=== PATIENT | female | born 1985 | race Caucasian/White ===

== ENCOUNTER 2025-03-28 08:42 | Outpatient (AMB) | payer MEDICAID, SELFPAY ==
[2025-03-28 08:52] VITALS: BP 106/72; PULSE 73; RESP 18; TEMP 36.2; O2SAT 98; BMI 49.7
--- NOTE | 2025-03-28 08:52 | OBCLNT_ITS ---
Vital Signs 03/28/25 08:52 Height 1.57 m Height Method Stated Weight 123.434 kg Weight Measurement Method Standing Scale BMI 49.7 BP 106/72 Blood Pressure Source Automatic Cuff Blood Pressure Location Left Upper Arm Position Sitting Respiration 18 Pulse 73 Pulse Source Monitor Temp 97.2 F Temp Source Oral Pulse Oximetry (%) 98 Oxygen Delivery Method Room Air Allergies/Home Meds Allergies & Medications Allergies No Known Allergies Allergy (Verified 03/28/25 08:53) Intake Visit Data Collection New Patient or Established: Established Patient (seen at [facility] within 3 years) Reason for Visit:: OBI Seen by Clinical Staff ONLY (RN/MA): No 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 1. Little interest or pleasure in doing things: not at all 2. Feeling down, depressed, or hopeless: not at all Total score: 0 PHQ-9 3. Trouble falling or staying asleep, or sleeping too much: Not at all 4. Feeling tired or having little energy: Not at all 5. Poor appetite or overeating: Not at all 6. Feeling bad about yourself - or that you are a failure or have let yourself or your family down: Not at all 7. Trouble concentrating on things, such as reading the newspaper or watching television: Not at all 8. Moving or speaking so slowly that other people could have noticed? - Or the opposite - being so fidgety or restless that you have been moving around a lot more than usual: not at all 9. Thoughts that you would be better off or of hurting yourself in some way: Not at all Total score: 0 If you checked off any problems, how difficult have these problems made it for you to do your work, take care of things at home, or get along with other people?: not difficult at all Source: Developed by Drs. Kieran Frances, Dominga Barber, Ezequiel Hinds and colleagues, with an educational troy from [employer]. Depression screen completed yes Social History Living Situation History Marital Status: Single Lives With: Family Housing: Apartment Tobacco History Smoking Status: Never smoker Second Hand Smoke Exposure: No Alcohol History Alcohol Intake: Never Domestic Abuse History Do You Feel Safe at Home: Yes Past Medical History Past Medical History Have you ever been diagnosed with any of the following: Cardiology Problems Angina: No Atherosclerotic Heart Disease: No Aneurysm: No Congestive Heart Failure: No Respiratory Problems Chronic Obstructive Pulmonary Disease (COPD): No Genital/Urinary Problems Renal Disease: No Reproductive Problems Pelvic Inflammatory Disease: No Endocrine Problems Diabetes Mellitus Type 1: No Diabetes Mellitus Type 2: No Other Problems Anesthesia Reactions: No Organ Transplant: No MRSA: No Clostridium Difficile: No Cancer: No Surgical History Hysterectomy: No History of Present Illness HPI Narrative 39 yo for OBI. LMP 02/22/25. EDC 11/30/25, sure date. planned test. removed IUD 11/14. taking PNV. seen at [facility] for preg confirm. Denies sab complaints. no complaints of discomfort. Denies existing PMH, denies social habit, denies surgery OB Initial Visit OB Flowsheet OB Flowsheet Initial Weight: Not Recorded Date -?-?-?-?-?-?-?-?-?-?--?-?- EGA Weight Edema CTX Effacement BP Fundal ht Pres Dilation Effacement Station Visit Note Alb Glu FHR Mov 03/28/25 -?-?-?-?-?-?-?-?-?-?-?-?- 4w 6d 123.434 kg absent absent 106/72 39 yo for OBI, denies sab compliants. doing well, no 1st tri discomfort. discuss diet and weight gsin, Biggest baby was 9lb, no complication/no shoulder. OB panel, HCG,TSH/A1c today, start PNV, schedule OB sono for viability. will schedule MFM appointment and lovett carrier screens at 10 week, SAB precaution,rtc 4 week Menstrual History Menstrual reliability: definite Flow: normal Menstrual regularity: regular Monthly: Yes Age at menarche: 12 On control pills at conception: No Date of positive home test: 03/22/25 Associated symptoms (LMP): Reports amenorrhea OB History : 4 Para: 3 Hx # Pregnancies: 0 Hx Total # of Abortions (Spontaneous & Elective): 0 # of Living Children: 3 Delivery History 1st : Child's name: NORRIS date: 10/14/10 sex: male Delivery type: vaginal weight (lbs): 3175.147 g History of depression before or after : No 2nd : Child's name: ADALETHAN date: 07/09/15 sex: female Delivery type: vaginal weight (lbs): 3175.147 g History of depression before or after : No 3rd : Child's name: ALICIA date: 12/13/21 sex: female Delivery type: vaginal weight (lbs): 4082.331 g History of depression before or after : No Infection History & Risk Evaluation History of STDs: none HIV risk evaluation: low risk Hepatitis B risk evaluation: low risk Patient or partner has history of Genital Herpes: No Varicella/chicken pox status: immunized Genetic Screening & History Genetic Screening/Teratology Counseling - Includes patient, baby's father, or anyone in either family with: 1. Patient's age 35 years or older as of estimated date of delivery: Yes 2. Thalassemia (Estonian, Maltese, Mediterranean, or Background); MCV less than 80: No 3. Neural Tube Defect (Meningomyelocele, Spina Bifida, or Anencephaly): No 4. Congenital Heart Defect: No 5. Down Syndrome: No 6. Artie-Sachs (Ashkenazi Rastafari, Cajun, Surinamese [place]): No 7. Marti Disease (Ashkenazi Rastafari): No 8. Familial Dysautonomia (Ashkenazi Rastafari): No 9. Sickle Cell Disease or Trait (): No 10. Hemophilia or other blood disorders: No 11. Muscular Dystrophy: No 12. Cystic Fibrosis: No 13. Aledo's Chorea: No 14. Mental Retardation/Autism: No 15. Other inherited genetic or chromosomal disorder: No 16. Maternal Metabolic Disorder (EG,TYPE 1 Diabetes, PKU): No 17. Patient or baby's father had a child with defects not listed above: No 18. Recurrent loss or a stillbirth: No 19. Medications (including supplements, vitamins, herbs or otc drugs)/illicit/recreational drugs/alcohol since last menstrual period: No 20. Any other: No Infection History 1. Live with someone with TB or exposed to TB: No 2. Rash or viral illness since last menstrual period: No 3. Hepatitis B,C: No Other (see comments) Source: [employer] Review of Systems Review of Systems Systems Reviewed: All systems reviewed, normal except as documented Genitourinary Genitourinary: Reports amenorrhea Exam General Limitations: no limitations General Appearance: alert, in no apparent distress, comfortable, cooperative, healthy appearing, well developed and well groomed Head Head exam: atraumatic, normocephalic and normal inspection Neck Neck exam: Present normal inspection, full ROM and trachea midline Resp Respiratory exam: Present normal lung sounds bilaterally Card Cardiovascular exam: Present regular rate, normal rhythm and normal heart sounds Abdominal Abdominal exam: Present soft and normal bowel sounds Psych Psychiatric exam: Present normal affect and normal mood Assessment & Plan Diagnosis / Problem List (1) Encounter for supervision of normal in multigravida in first trimester: Status: Acute (2) Advanced maternal age (AMA) in : Status: Acute (3) Obesity complicating in first trimester: Status: Acute Plan discuss weight gain of 15lb, walk daily, SAB precaution, start PNV. OB panel with HCG,TSH,A1c UT today, sono for viability. rtc 4 week Additional Plan Follow Up: 4 Weeks (obc) Office Procedures OB Clinic LOC & Office Proc's Nursing/Assessment Patient Status: Initial/New Patient OB Clinic Nursing Assessment: BP Monitoring, Medication Reconciliation, Update PMH in EMR and Vital Signs OB Clinic Coordination of Care: Consent,records obtained, informed consent, Education Simp Pt/Fam and Lab and Imaging orders New Patient Charge New Patient Point Assignment: [id number] New Patient Point Charge: DIRECTOR ORANGE Level 3 ([id number])
== END 2025-03-28 09:17 | disposition home or self-care (01) ==
LOC: HODSOBC 08:42
PROVIDERS: PCP Family Medicine; Referring Provider Family Medicine; Supervising Provider Advanced Practice Midwife; Visit Provider Advanced Practice Midwife
DX: O09.521 Supervision of elderly multigravida, first trimester (principal); Z3A.01 Less than 8 weeks gestation of pregnancy; O09.891 Supervision of other high risk pregnancies, first trimester; O99.211 Obesity complicating pregnancy, first trimester
CPT/HCPCS: 81001; 99203; G0463

== ENCOUNTER 2025-04-25 08:28 | Outpatient (AMB) | payer MEDICAID, SELFPAY ==
--- NOTE | 2025-04-25 09:04 | OBCLNT_ITS ---
Vital Signs 04/25/25 09:05 Height 1.57 m Height Method Stated Weight 121.109 kg Weight Measurement Method Standing Scale BMI 49.1 BP 111/75 Blood Pressure Source Automatic Cuff Blood Pressure Location Left Upper Arm Position Sitting Respiration 18 Pulse 66 Pulse Source Monitor Temp 97.2 F Temp Source Oral Pulse Oximetry (%) 97 Oxygen Delivery Method Room Air Allergies/Home Meds Allergies & Medications Allergies No Known Allergies Allergy (Verified 04/25/25 09:06) Medication Reconciliation doxylamine 10 mg-pyridoxine (vit B6) 10 mg tablet,delayed release (Diclegis) 1 tab PO BID PRN nausea and vomiting 30 days #60 tabs 04/25/25 [Rx] Intake Visit Data Collection New Patient or Established: Established Patient (seen at [facility] within 3 years) Reason for Visit:: OBC Seen by Clinical Staff ONLY (RN/MA): No 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 1. Little interest or pleasure in doing things: not at all 2. Feeling down, depressed, or hopeless: not at all Total score: 0 PHQ-9 3. Trouble falling or staying asleep, or sleeping too much: Not at all 4. Feeling tired or having little energy: Not at all 5. Poor appetite or overeating: Not at all 6. Feeling bad about yourself - or that you are a failure or have let yourself or your family down: Not at all 7. Trouble concentrating on things, such as reading the newspaper or watching television: Not at all 8. Moving or speaking so slowly that other people could have noticed? - Or the opposite - being so fidgety or restless that you have been moving around a lot more than usual: not at all 9. Thoughts that you would be better off or of hurting yourself in some way: Not at all Total score: 0 If you checked off any problems, how difficult have these problems made it for you to do your work, take care of things at home, or get along with other people?: not difficult at all Source: Developed by Drs. Kieran Frances, Dominga Barber, Ezequiel Hinds and colleagues, with an educational troy from [employer]. 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 doing well, no 1st tri discomfort. discuss diet and weight gsin, Biggest baby was 9lb, no complication/no shoulder. OB panel, HCG,TSH/A1c today, start PNV, schedule OB sono for viability. will schedule MFM appointment and lovett carrier screens at 10 week, SAB precaution,rtc 4 week 04/25/25 -?-?-?-?-?-?-?-?-?-?-?-?- 8w 6d 121.109 kg 111/75 absent unknown 10 154 absent deneis sab complaints, increase N/V, no other complaints schedule NT/anatomy scan. NIPT and carrier screen today. start diclegesis bid for nausea, comfort measure, discuss diet and weight gain. sab precaution, rtc 4 week VESNA Calculator Estimated Delivery Date Method Current WG Current Estimate 11/29/25 LMP (Certain) 8w 6d Notes Visit Date: 04/25/25 Last Updated by: Holley Austin CNM 39 yo . lmp 02/22/25. EDC 11/29/24. AMA/BMI, A=,abs-,rpr;;nr, rub NI, hbsag-,hiv-,gc/ct-. +UTI/treated Office Procedures OB Clinic LOC & Office Proc's Nursing/Assessment Patient Status: Established Patient OB Clinic Nursing Assessment: Medication Reconciliation, Update PMH in EMR and Vital Signs OB Clinic Coordination of Care: Education Complex Pt/Fam, Consent,records obtained, informed consent, Lab and Imaging orders, Results/Orders obtained and Staff clarify orders Special Needs: Heart tones Established Patient Charge Established Patient Point Assignment: 115 Established Patient Point Charge: EP Level 3 (80-115) Assessment & Plan Diagnosis / Problem List (1) Advanced maternal age (AMA) in : Status: Acute (2) Obesity complicating in first trimester: Status: Acute Plan discuss diet and weight gain, increase fluid, NIPT and carrier screen today. sched NT and anatomy scan, sab precaution, rtc 4 week Additional Plan Follow Up: 4 Weeks (obc)
[2025-04-25 09:05] VITALS: BP 111/75; PULSE 66; RESP 18; TEMP 36.2; O2SAT 97; BMI 49.1
== END 2025-04-25 09:07 | disposition home or self-care (01) ==
LOC: HODSOBC 08:28
PROVIDERS: Supervising Provider Advanced Practice Midwife; Visit Provider Advanced Practice Midwife
DX: O09.521 Supervision of elderly multigravida, first trimester (principal); Z3A.08 8 weeks gestation of pregnancy; O09.891 Supervision of other high risk pregnancies, first trimester; O99.211 Obesity complicating pregnancy, first trimester
CPT/HCPCS: 99213; G0463

== ENCOUNTER 2025-05-29 08:49 | Outpatient (AMB) | payer MEDICAID, SELFPAY ==
[2025-05-29 09:16] VITALS: BP 111/76; PULSE 75; RESP 17; TEMP 36.3; O2SAT 96; BMI 49.4
--- NOTE | 2025-05-29 09:16 | OBCLNT_ITS ---
Vital Signs 05/29/25 09:16 Height 1.57 m Height Method Measured Weight 121.79 kg Weight Measurement Method Standing Scale BMI 49.4 BP 111/76 Blood Pressure Source Automatic Cuff Blood Pressure Location Right Upper Arm Position Sitting Respiration 17 Pulse 75 Pulse Source Monitor Temp 97.3 F Temp Source Temporal Artery Scan Pulse Oximetry (%) 96 Oxygen Delivery Method Room Air Allergies/Home Meds Allergies & Medications Allergies No Known Allergies Allergy (Verified 05/29/25 09:17) Medication Reconciliation doxylamine 10 mg-pyridoxine (vit B6) 10 mg tablet,delayed release (Diclegis) 1 tab PO BID PRN nausea and vomiting 30 days #60 tabs 04/25/25 [Rx Confirmed 05/29/25] Intake Visit Data Collection New Patient or Established: Established Patient (seen at [facility] within 3 years) Reason for Visit:: OBC Consent obtained for Telemed Visit: No Seen by Clinical Staff ONLY (RN/MA): No Stock Layer Required: No Do You Feel Safe at Home: Yes Authorities Contacted: N/A PCP or OBGYN visit in last 3 months: Yes Date of Last PCP or OBGYN visit: 04/25/25 Hx Now: Yes Are you currently on any form of Control: No Pain Present Currently: No Pain Scale Used: Vance-Trevino/Numerical Pain scale:: 0 Smoking Status Smoking Status: Never smoker Questionnaires Covid-19 Vaccine Questionnaire Has patient been vacinated for Covid-19 Have you been vacinated for Covid-19: Yes PHQ-9 PHQ-2 Over the last 2 weeks, how often have you been bothered by any of the following problems? 1. Little interest or pleasure in doing things: not at all PHQ-9 8. Moving or speaking so slowly that other people could have noticed? - Or the opposite - being so fidgety or restless that you have been moving around a lot more than usual: not at all Source: Developed by Drs. Kieran Frances, Dominga Barber, Ezequiel Hinds and colleagues, with an educational troy from [employer]. 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 doing well, no 1st tri discomfort. discuss diet and weight gsin, Biggest baby was 9lb, no complication/no shoulder. OB panel, HCG,TSH/A1c today, start PNV, schedule OB sono for viability. will schedule MFM appointment and lovett carrier screens at 10 week, SAB precaution,rtc 4 week 04/25/25 -?-?-?-?-?-?-?-?-?-?-?-?- 8w 6d 121.109 kg 111/75 absent unknown 10 154 absent deneis sab complaints, increase N/V, no other complaints schedule NT/anatomy scan. NIPT and carrier screen today. start diclegesis bid for nausea, comfort measure, discuss diet and weight gain. sab precaution, rtc 4 week 05/29/25 -?-?-?-?-?-?-?-?-?-?-?-?- 13w 5d 121.79 kg 111/76 absent unknown 13 135 absent denies SAB complaints, light +FM discuss sab prec aution, hydrate, mfm appointment pending, AFP NV.rtc 4 week obc VESNA Calculator Estimated Delivery Date Method Current WG Current Estimate 11/29/25 LMP (Certain) 13w 5d Notes Visit Date: 05/29/25 Last Updated by: Holley Austin CNM 05/29: A+, abs-. NIPT-, SMA/CF-, BOY Visit Date: 04/25/25 Last Updated by: Holley Austin CNM 39 yo . lmp 02/22/25. EDC 11/29/24. AMA/BMI, A=,abs-,rpr;;nr, rub NI, hbsag-,hiv-,gc/ct-. +UTI/treated Office Procedures OB Clinic LOC & Office Proc's Nursing/Assessment Patient Status: Established Patient OB Clinic Nursing Assessment: Medication Reconciliation, Update PMH in EMR and Vital Signs OB Clinic Coordination of Care: Complex Care and Chronic Disease 1-5, Education Complex Pt/Fam, Lab and Imaging orders, Results/Orders obtained and Staff clarify orders Special Needs: Heart tones Established Patient Charge Established Patient Point Assignment: 135 Established Patient Point Charge: EP Level 4 (120-155) Assessment & Plan Diagnosis / Problem List (1) Obesity complicating in first trimester: Status: Acute (2) Advanced maternal age (AMA) in : Status: Acute Plan MFM pending, AFP NV, discuss 1st trimester comfort measure, hydrate.sab precaution, rtc 4 week Additional Plan Follow Up: 4 Weeks (obc)
== END 2025-05-29 09:38 | disposition home or self-care (01) ==
LOC: HODSOBC 08:49
PROVIDERS: PCP Advanced Practice Midwife; Referring Provider Advanced Practice Midwife; Supervising Provider Advanced Practice Midwife; Visit Provider Advanced Practice Midwife
DX: O09.521 Supervision of elderly multigravida, first trimester (principal); Z3A.13 13 weeks gestation of pregnancy; O09.891 Supervision of other high risk pregnancies, first trimester; O99.211 Obesity complicating pregnancy, first trimester
CPT/HCPCS: 99214; G0463

== ENCOUNTER 2025-06-26 08:50 | Outpatient (AMB) | payer MEDICAID, SELFPAY ==
[2025-06-26 09:03] VITALS: BP 123/79; PULSE 82; RESP 17; TEMP 36.4; O2SAT 97; BMI 50.4
--- NOTE | 2025-06-26 09:03 | OBCLNT_ITS ---
Vital Signs 06/26/25 09:03 Height 1.57 m Height Method Measured Weight 124.398 kg Weight Measurement Method Standing Scale BMI 50.4 BP 123/79 Blood Pressure Source Automatic Cuff Blood Pressure Location Right Upper Arm Position Sitting Respiration 17 Pulse 82 Pulse Source Monitor Temp 97.5 F Temp Source Temporal Artery Scan Pulse Oximetry (%) 97 Oxygen Delivery Method Room Air Allergies/Home Meds Allergies & Medications Allergies No Known Allergies Allergy (Verified 06/26/25 09:04) Medication Reconciliation doxylamine 10 mg-pyridoxine (vit B6) 10 mg tablet,delayed release (Diclegis) 1 tab PO BID PRN nausea and vomiting 30 days #60 tabs 04/25/25 [Rx Confirmed 06/26/25] Intake Visit Data Collection New Patient or Established: Established Patient (seen at [facility] within 3 years) Reason for Visit:: OBC Consent obtained for Telemed Visit: No Seen by Clinical Staff ONLY (RN/MA): No Network Systems Analyst Required: No Do You Feel Safe at Home: Yes Authorities Contacted: N/A PCP or OBGYN visit in last 3 months: Yes Date of Last PCP or OBGYN visit: 05/29/25 Hx Now: Yes Are you currently on any form of Control: No Pain Present Currently: No Pain Scale Used: Vance-Trevino/Numerical Pain scale:: 0 Smoking Status Smoking Status: Never smoker Questionnaires Covid-19 Vaccine Questionnaire Has patient been vacinated for Covid-19 Have you been vacinated for Covid-19: No PHQ-9 PHQ-2 Over the last 2 weeks, how often have you been bothered by any of the following problems? 1. Little interest or pleasure in doing things: not at all PHQ-9 8. Moving or speaking so slowly that other people could have noticed? - Or the opposite - being so fidgety or restless that you have been moving around a lot more than usual: not at all Source: Developed by Drs. Kieran Frances, Dominga Barber, Ezequiel Hinds and colleagues, with an educational troy from [employer]. 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 doing well, no 1st tri discomfort. discuss diet and weight gsin, Biggest baby was 9lb, no complication/no shoulder. OB panel, HCG,TSH/A1c today, start PNV, schedule OB sono for viability. will schedule MFM appointment and lovett carrier screens at 10 week, SAB precaution,rtc 4 week 04/25/25 -?-?-?-?-?-?-?-?-?-?-?-?- 8w 6d 121.109 kg 111/75 absent unknown 10 154 absent deneis sab complaints, increase N/V, no other complaints schedule NT/anatomy scan. NIPT and carrier screen today. start diclegesis bid for nausea, comfort measure, discuss diet and weight gain. sab precaution, rtc 4 week 05/29/25 -?-?-?-?-?-?-?-?-?-?-?-?- 13w 5d 121.79 kg 111/76 absent unknown 13 135 absent denies SAB complaints, light +FM discuss sab prec aution, hydrate, mfm appointment pending, AFP NV.rtc 4 week obc 06/26/25 -?-?-?-?-?-?-?-?-?-?-?-?- 17w 5d 124.398 kg 123/79 absent unknown 17 135 absent light fm, no ob complaints, MFM pending, no SAB complaints reported AFP,A1c, discuss GDM diet, contineu PNV, f/u on mfm referal, rtc 4 week VESNA Calculator Estimated Delivery Date Method Current WG Current Estimate 11/29/25 LMP (Certain) 17w 5d Notes Visit Date: 06/26/25 Last Updated by: Holley Austin CNM 39 yo . LMP 02/22/25. EDC 11/29/25, A+,abs-, rpr;;nr, rub NI, hbs ag-,hiv-,hc-, GC/CT-, NIPT and carrier- Visit Date: 05/29/25 Last Updated by: Holley Austin CNM 05/29: A+, abs-. NIPT-, SMA/CF-, BOY Visit Date: 04/25/25 Last Updated by: Holley Austin CNM 39 yo . lmp 02/22/25. EDC 11/29/24. AMA/BMI, A=,abs-,rpr;;nr, rub NI, hbsag-,hiv-,gc/ct-. +UTI/treated Office Procedures OB Clinic LOC & Office Proc's Nursing/Assessment Patient Status: Established Patient OB Clinic Nursing Assessment: Medication Reconciliation, Update PMH in EMR and Vital Signs OB Clinic Coordination of Care: Complex Care and Chronic Disease 1-5, Consent,records obtained, informed consent, Education Simp Pt/Fam and 4+ Authorizations needed Special Needs: Heart tones Established Patient Charge Established Patient Point Assignment: 130 Established Patient Point Charge: EP Level 4 (120-155) Assessment & Plan Diagnosis / Problem List (1) Advanced maternal age (AMA) in : Status: Acute (2) Obesity complicating in first trimester: Status: Acute (3) Encounter for supervision of high risk in second trimester, antepartum: Status: Acute Plan AFP, A1c, discuss weight and diet, continue pnv. f/u on mfm referral. Hydrate,no salt. ptl precaution, rtc 4 week Additional Plan Follow Up: 4 Weeks (obc)
== END 2025-06-26 09:14 | disposition home or self-care (01) ==
LOC: HODSOBC 08:50
PROVIDERS: Supervising Provider Advanced Practice Midwife; Visit Provider Advanced Practice Midwife
DX: O09.522 Supervision of elderly multigravida, second trimester (principal); O09.892 Supervision of other high risk pregnancies, second trimester; O99.212 Obesity complicating pregnancy, second trimester; Z3A.17 17 weeks gestation of pregnancy
CPT/HCPCS: 99214; G0463

== ENCOUNTER 2025-07-24 09:15 | Outpatient (AMB) | payer MEDICAID, SELFPAY ==
[2025-07-24 09:20] VITALS: BP 111/73; PULSE 91; RESP 16; TEMP 36.2; O2SAT 98; BMI 50.8
--- NOTE | 2025-07-24 09:20 | AMB.OBVISIT ---
Vital Signs 07/24/25 09:20 Height 1.57 m Height Method Stated Weight 125.418 kg Weight Measurement Method Standing Scale BMI 50.8 BP 111/73 Blood Pressure Source Automatic Cuff Blood Pressure Location Left Upper Arm Position Sitting Respiration 16 Pulse 91 Pulse Source Monitor Temp 97.2 F Temp Source Oral Pulse Oximetry (%) 98 Oxygen Delivery Method Room Air Allergies/Home Meds Allergies & Medications Allergies No Known Allergies Allergy (Verified 07/24/25 09:20) Medication Reconciliation doxylamine 10 mg-pyridoxine (vit B6) 10 mg tablet,delayed release (Diclegis) 1 tab PO BID PRN nausea and vomiting 30 days #60 tabs 04/25/25 [Rx Confirmed 07/24/25] vitamin-ferrous fumarate 28 mg iron-folic acid 800 mcg tablet ( Vitamins with Minerals) 1 tab PO QDAY #60 tabs 07/24/25 [Rx] Intake Visit Data Collection New Patient or Established: Established Patient (seen at [facility] within 3 years) Reason for Visit:: OBC Seen by Clinical Staff ONLY (RN/MA): No Shop Coordinator Required: No Do You Feel Safe at Home: Yes Authorities Contacted: N/A PCP or OBGYN visit in last 3 months: Yes Date of Last PCP or OBGYN visit: 06/26/25 Hx Now: Yes Are you currently on any form of Control: No Pain Present Currently: No Pain Scale Used: Vance-Trevino/Numerical Pain scale:: 0 Smoking Status Smoking Status: Never smoker Questionnaires Covid-19 Vaccine Questionnaire Has patient been vacinated for Covid-19 Have you been vacinated for Covid-19: Yes PHQ-9 PHQ-2 Over the last 2 weeks, how often have you been bothered by any of the following problems? 1. Little interest or pleasure in doing things: not at all 2. Feeling down, depressed, or hopeless: not at all Total score: 0 PHQ-9 3. Trouble falling or staying asleep, or sleeping too much: Not at all 4. Feeling tired or having little energy: Not at all 5. Poor appetite or overeating: Not at all 6. Feeling bad about yourself - or that you are a failure or have let yourself or your family down: Not at all 7. Trouble concentrating on things, such as reading the newspaper or watching television: Not at all 8. Moving or speaking so slowly that other people could have noticed? - Or the opposite - being so fidgety or restless that you have been moving around a lot more than usual: not at all 9. Thoughts that you would be better off or of hurting yourself in some way: Not at all Total score: 0 If you checked off any problems, how difficult have these problems made it for you to do your work, take care of things at home, or get along with other people?: not difficult at all Source: Developed by Drs. Kieran Frances, Dominga Barber, Ezequiel Hinds and colleagues, with an educational troy from [employer] 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 doing well, no 1st tri discomfort. discuss diet and weight gsin, Biggest baby was 9lb, no complication/no shoulder. OB panel, HCG,TSH/A1c today, start PNV, schedule OB sono for viability. will schedule MFM appointment and lovett carrier screens at 10 week, SAB precaution,rtc 4 week 04/25/25 <del>?</del> 8w 6d 121.109 kg 111/75 absent unknown 10 154 absent deneis sab complaints, increase N/V, no other complaints schedule NT/anatomy scan. NIPT and carrier screen today. start diclegesis bid for nausea, comfort measure, discuss diet and weight gain. sab precaution, rtc 4 week 05/29/25 <del>?</del> 13w 5d 121.79 kg 111/76 absent unknown 13 135 absent denies SAB complaints, light +FM discuss sab precaution, hydrate, mfm appointment pending, AFP NV.rtc 4 week obc 06/26/25 <del>?</del> 17w 5d 124.398 kg 123/79 absent unknown 17 135 absent light fm, no ob complaints, MFM pending, no SAB complaints reported AFP,A1c, discuss GDM diet, contineu PNV, f/u on mfm referal, rtc 4 week 07/24/25 <del>?</del> 21w 5d 125.418 kg 111/73 absent unknown 20 135 active No OB complaints. Denies leaking, denies bleeding, denies contractions. Patient needs a refill on prenatals. No OB complaints Refill prenatals. Walk 40 minutes a day. Discussed diet and weight gain. Follow-up on MFM appointment. Return in 4 weeks OB check VESNA Calculator Estimated Delivery Date Method Current WG Current Estimate 11/29/25 LMP (Certain) 21w 5d Notes Visit Date: 07/24/25 Last Updated by: Holley Austin CNM 07/24: AFP- Visit Date: 06/26/25 Last Updated by: Holley Austin CNM 39 yo . LMP 02/22/25. EDC 11/29/25, A+,abs-, rpr;;nr, rub NI, hbsag-,hiv-,hc-, GC/CT-, NIPT and carrier- Visit Date: 05/29/25 Last Updated by: Holley Austin CNM 05/29: A+, abs-. NIPT-, SMA/CF-, BOY Visit Date: 04/25/25 Last Updated by: Holley Austin CNM 39 yo . lmp 02/22/25. EDC 11/29/24. AMA/BMI, A=,abs-,rpr;;nr, rub NI, hbsag-,hiv-,gc/ct-. +UTI/treated Office Procedures OB Clinic LOC & Office Proc's Nursing/Assessment Patient Status: Established Patient OB Clinic Nursing Assessment: Medication Reconciliation, Update PMH in EMR and Vital Signs OB Clinic Coordination of Care: Education Complex Pt/Fam, Consent,records obtained, informed consent, Lab and Imaging orders and Results/Orders obtained Special Needs: Heart tones Established Patient Charge Established Patient Point Assignment: 105 Established Patient Point Charge: EP Level 3 (80-115) Assessment & Plan Diagnosis / Problem List (1) Encounter for supervision of high risk in second trimester, antepartum: Status: Acute (2) Obesity complicating in first trimester: Status: Acute (3) Advanced maternal age (AMA) in : Status: Acute Plan MFM anatomy scan pending. Discussed diet and weight. Walk 40 minutes a day. Discussed AFP. Continue prenatals and those were refilled. Increase fluids. Return in 4 weeks OB check Additional Plan Follow Up: 4 Weeks (obc)
== END 2025-07-24 09:48 | disposition home or self-care (01) ==
LOC: HODSOBC 09:15
PROVIDERS: Supervising Provider Advanced Practice Midwife; Visit Provider Advanced Practice Midwife
DX: O09.522 Supervision of elderly multigravida, second trimester (principal); O09.892 Supervision of other high risk pregnancies, second trimester; O99.212 Obesity complicating pregnancy, second trimester; Z3A.21 21 weeks gestation of pregnancy
CPT/HCPCS: 99213; G0463

== ENCOUNTER 2025-08-26 09:32 | Outpatient (AMB) | payer MEDICAID, SELFPAY ==
[2025-08-26 09:37] VITALS: BP 105/70; PULSE 77; RESP 16; TEMP 35.8; O2SAT 96; BMI 51.0
--- NOTE | 2025-08-26 09:37 | OBCLNT_ITS ---
Vital Signs 08/26/25 09:37 Height 1.57 m Height Method Stated Weight 125.872 kg Weight Measurement Method Standing Scale BMI 51.0 BP 105/70 Blood Pressure Source Automatic Cuff Blood Pressure Location Left Upper Arm Position Sitting Respiration 16 Pulse 77 Pulse Source Monitor Temp 96.4 F L Temp Source Oral Pulse Oximetry (%) 96 Oxygen Delivery Method Room Air Allergies/Home Meds Allergies & Medications Allergies No Known Allergies Allergy (Verified 08/26/25 09:38) Medication Reconciliation doxylamine 10 mg-pyridoxine (vit B6) 10 mg tablet,delayed release (Diclegis) 1 tab PO BID PRN nausea and vomiting 30 days #60 tabs 04/25/25 [Rx Confirmed 08/26/25] vitamin-ferrous fumarate 28 mg iron-folic acid 800 mcg tablet ( Vitamins with Minerals) 1 tab PO QDAY #60 tabs 07/24/25 [Rx Confirmed 08/26/25] Intake Visit Data Collection New Patient or Established: Established Patient (seen at [facility] within 3 years) Reason for Visit:: CARE Seen by Clinical Staff ONLY (RN/MA): No Geologic Technician Required: No Do You Feel Safe at Home: Yes Authorities Contacted: N/A PCP or OBGYN visit in last 3 months: Yes Hx Now: Yes Are you currently on any form of Control: No Pain Present Currently: No Pain Scale Used: Vance-Trevino/Numerical Pain scale:: 0 Smoking Status Smoking Status: Never smoker Questionnaires Covid-19 Vaccine Questionnaire Has patient been vacinated for Covid-19 Have you been vacinated for Covid-19: Yes PHQ-9 PHQ-2 Over the last 2 weeks, how often have you been bothered by any of the following problems? 1. Little interest or pleasure in doing things: not at all 2. Feeling down, depressed, or hopeless: not at all Total score: 0 PHQ-9 3. Trouble falling or staying asleep, or sleeping too much: Not at all 4. Feeling tired or having little energy: Not at all 5. Poor appetite or overeating: Not at all 6. Feeling bad about yourself - or that you are a failure or have let yourself or your family down: Not at all 7. Trouble concentrating on things, such as reading the newspaper or watching television: Not at all 8. Moving or speaking so slowly that other people could have noticed? - Or the opposite - being so fidgety or restless that you have been moving around a lot more than usual: not at all 9. Thoughts that you would be better off or of hurting yourself in some way: Not at all Total score: 0 Source: Developed by Drs. Kieran Frances, Dominga Barber, Ezequiel Hinds and colleagues, with an educational troy from [employer]. 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 doing well, no 1st tri discomfort. discuss diet and weight gsin, Biggest baby was 9lb, no complication/no shoulder. OB panel, HCG,TSH/A1c today, start PNV, schedule OB sono for viability. will schedule MFM appointment and lovett carrier screens at 10 week, SAB precaution,rtc 4 week 04/25/25 -?-?-?-?-?-?-?-?-?-?-?-?- 8w 6d 121.109 kg 111/75 absent unknown 10 154 absent deneis sab complaints, increase N/V, no other complaints schedule NT/anatomy scan. NIPT and carrier screen today. start diclegesis bid for nausea, comfort measure, discuss diet and weight gain. sab precaution, rtc 4 week 05/29/25 -?-?-?-?-?-?-?-?-?-?-?-?- 13w 5d 121.79 kg 111/76 absent unknown 13 135 absent denies SAB complaints, light +FM discuss sab prec aution, hydrate, mfm appointment pending, AFP NV.rtc 4 week obc 06/26/25 -?-?-?-?--?-?-?-?-?-?-?-?- 17w 5d 124.398 kg 123/79 absent unknown 17 135 absent light fm, no ob complaints, MFM pending, no SAB complaints reported AFP,A1c, discuss GDM diet, contineu PNV, f/u on mfm referal, rtc 4 week 07/24/25 -?-?-?-?-?-?-?-?-?-?-?-?- 21w 5d 125.418 kg 111/73 absent unknown 20 135 active No OB complaints. Denies leaking, denies bleeding, denies contractions. Patient needs a refill on prenatals. No OB complaints Ref ill prenatals. Walk 40 minutes a day. Discussed diet and weight gain. Follow-up on MFM appointment. Return in 4 weeks OB check 08/26/25 -?-?-?-?-?-?-?-?-?-?-?-?- 26w 3d 125.872 kg 105/70 absent unknown 26 135 active Patient has ultrasound with MFM in the morning. Denies leaking, bleeding, contractions. Reports movement. No OB complaints. Patient will start disability next visit as she is not working at all. Disability next visit. Keep appointment for maternal- medicine ultrasound in the morning. Third trimester labs scheduled. Return in 4 weeks OB check VESNA Calculator Estimated Delivery Date Method Current WG Current Estimate 11/29/25 LMP (Certain) 26w 3d Notes Visit Date: 07/24/25 Last Updated by: Holley Austin CNM 07/24: AFP- Visit Date: 06/26/25 Last Updated by: Holley Austin CNM 39 yo . LMP 02/22/25. EDC 11/29/25, A+,abs-, rpr;;nr, rub NI, hbsag-,hiv-,hc-, GC/CT-, NIPT and carrier- Visit Date: 05/29/25 Last Updated by: Holley Austin CNM 05/29: A+, abs-. NIPT-, SMA/CF-, BOY Visit Date: 04/25/25 Last Updated by: Holley Austin CNM 39 yo . lmp 02/22/25. EDC 11/29/24. AMA/BMI, A=,abs-,rpr;;nr, rub NI, hbsag-,hiv-,gc/ct-. +UTI/treated Office Procedures OBC Clinic LOC & Office Proc's Nursing/Assessment Patient Status: Established Patient OB Clinic Nursing Assessment: Medication Reconciliation, Update PMH in EMR and Vital Signs OB Clinic Coordination of Care: AMA, Complex Care and Chronic Disease 1-5, Consent,records obtained, informed consent, Education Simp Pt/Fam, 1 Ins Authorization, Lab and Imaging orders, Results/Orders obtained and Staff clarify orders Established Patient Charge Established Patient Point Assignment: 140 Established Patient Point Charge: EP Level 4 (120-155) Assessment & Plan Diagnosis / Problem List (1) Encounter for supervision of high risk in second trimester, antepartum: Status: Acute Plan Third trimester labs. Keep appointment for ultrasound in the morning with MFM. Discussed labor precautions. Continue prenatals. Diet and exercise. Return in 4 weeks OB check. Disability next visit Additional Plan Follow Up: 4 Weeks (obc)
== END 2025-08-26 10:36 | disposition home or self-care (01) ==
LOC: HODSOBC 09:32
PROVIDERS: Supervising Provider Advanced Practice Midwife; Visit Provider Advanced Practice Midwife
DX: O09.522 Supervision of elderly multigravida, second trimester (principal); Z3A.26 26 weeks gestation of pregnancy
CPT/HCPCS: 99214; G0463

== ENCOUNTER 2025-09-16 14:31 | Observation (INO) | payer MEDICAID, SELFPAY ==
[2025-09-16] VITALS (29 sets, daily range): BP systolic 133; BP diastolic 70; PULSE 71–94; RESP 18–98; TEMP 36.6; O2SAT 90–99; BMI 51.7
--- NOTE | 2025-09-16 14:49 | XR_ITS ---
Examination: Complete OB ultrasound greater than 14 weeks Date and time of exam: September 16, 2025, 1510 hours INDICATIONS: Onset vaginal bleeding today Findings: Viable intrauterine single fetus with single amniotic sac presentation cephalic Cardiac motion 140 bpm Placenta anterior grade 2 Umbilical cord insertion 3 vessels seen Amniotic fluid index 11.7 cm spine maternal left Cervix 4.2 cm Ovaries obscured by bowel gas. Composite estimated gestational age based on BPD, head circumference, abdominal circumference, femur length is 32 weeks 6 days Estimated weight 2030 g. Survey of intracranial anatomy, spinal anatomy, abdominal anatomy, four-chamber heart performed with no abnormalities identified. Impression: Viable intrauterine gestation cephalic presentation.
[2025-09-16 15:42] LABS: Collection Type, Urine Clean Catch
[2025-09-16 16:15] LABS: Bacteria,Urine 1+; Bilirubin,Urine Negative (Negative); Blood,Urine Negative (Negative); Clarity,Urine Clear (Clear/Hazy); Color,Urine Yellow (Lt Yel-Yel); Glucose, Urine Negative (Negative); Ketones,Urine Negative (Negative); Leukocyte Esterase,Urine Negative (Negative); Nitrite,Urine Negative (Negative); PH,Urine 6.5 (5.0-7.0); Protein,Urine Trace (Neg - Trace); RBC,Urine 6 /hpf (0-3); Specific Gravity,Urine 1.029 (1.001-1.035); Squamous Epithelial Cell,Urine 43 /hpf (0-5); Urobilinogen,Urine 2.0 mg/dL (0.0-1.0); WBC,Urine 4 /hpf (0-5)
== END 2025-09-16 17:15 | disposition home or self-care (01) ==
PROVIDERS: Admitting Provider Obstetrics & Gynecology; Visit Provider Obstetrics & Gynecology
DX: O46.93 Antepartum hemorrhage, unspecified, third trimester (principal); Z3A.32 32 weeks gestation of pregnancy
CPT/HCPCS: 59025; 59899; 76805; 81001

== ENCOUNTER 2025-09-23 09:25 | Outpatient (AMB) | payer MEDICAID, SELFPAY ==
--- NOTE | 2025-09-23 09:43 | OBCLNT_ITS ---
Vital Signs 09/23/25 09:44 Height 1.57 m Height Method Stated Weight 128.99 kg Weight Measurement Method Standing Scale BMI 52.3 BP 117/72 Blood Pressure Source Automatic Cuff Blood Pressure Location Right Upper Arm Position Sitting Respiration 18 Pulse 67 Pulse Source Monitor Temp 97.6 F Temp Source Temporal Artery Scan Pulse Oximetry (%) 96 Oxygen Delivery Method Room Air Allergies/Home Meds Allergies & Medications Allergies No Known Allergies Allergy (Verified 09/23/25 09:44) Medication Reconciliation doxylamine 10 mg-pyridoxine (vit B6) 10 mg tablet,delayed release (Diclegis) 1 tab PO BID PRN nausea and vomiting 30 days #60 tabs 04/25/25 [Rx Confirmed 09/23/25] vitamin-ferrous fumarate 28 mg iron-folic acid 800 mcg tablet ( Vitamins with Minerals) 1 tab PO QDAY #60 tabs 07/24/25 [Rx Confirmed 09/23/25] Intake Visit Data Collection New Patient or Established: Established Patient (seen at [facility] within 3 years) Reason for Visit:: OBC Seen by Clinical Staff ONLY (RN/MA): No Outsewer Required: No Do You Feel Safe at Home: Yes Authorities Contacted: N/A PCP or OBGYN visit in last 3 months: Yes Date of Last PCP or OBGYN visit: 09/16/25 Hx Now: Yes Are you currently on any form of Control: No Pain Present Currently: No Pain Scale Used: Vance-Trevino/Numerical Pain scale:: 0 Smoking Status Smoking Status: Never smoker Immunizations Flu Vaccine in the Last 12 Months: No Flu Vaccine Exclusion Criteria: No Exclusion Criteria Questionnaires Covid-19 Vaccine Questionnaire Has patient been vacinated for Covid-19 Have you been vacinated for Covid-19: No PHQ-9 PHQ-2 Over the last 2 weeks, how often have you been bothered by any of the following problems? 1. Little interest or pleasure in doing things: not at all 2. Feeling down, depressed, or hopeless: not at all Total score: 0 PHQ-9 3. Trouble falling or staying asleep, or sleeping too much: Not at all 4. Feeling tired or having little energy: Not at all 5. Poor appetite or overeating: Not at all 6. Feeling bad about yourself - or that you are a failure or have let yourself or your family down: Not at all 7. Trouble concentrating on things, such as reading the newspaper or watching television: Not at all 8. Moving or speaking so slowly that other people could have noticed? - Or the opposite - being so fidgety or restless that you have been moving around a lot more than usual: not at all 9. Thoughts that you would be better off or of hurting yourself in some way: Not at all Total score: 0 If you checked off any problems, how difficult have these problems made it for you to do your work, take care of things at home, or get along with other people?: not difficult at all Source: Developed by Drs. Kieran Frances, Dominga Barber, Ezequiel Hinds and colleagues, with an educational troy from [employer]. 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 doing well, no 1st tri discomfort. discuss diet and weight gsin, Biggest baby was 9lb, no complication/no shoulder. OB panel, HCG,TSH/A1c today, start PNV, schedule OB sono for viability. will schedule MFM appointment and lovett carrier screens at 10 week, SAB precaution,rtc 4 week 04/25/25 -?-?-?-?-?-?-?-?-?-?-?-?- 12w 2d 121.109 kg 111/75 absent unknown 10 154 absent deneis sab co mplaints, increase N/V, no other complaints schedule NT/anatomy scan. NIPT and carrier screen today. start diclegesis bid for nausea, comfort measure, discuss diet and weight gain. sab precaution, rtc 4 week 05/29/25 -?-?-?-?-?-?-?-?-?-?-?-?- 17w 1d 121.79 kg 111/76 absent unknown 13 135 absent denies SAB complaints, light +FM discuss sab prec aution, hydrate, mfm appointment pending, AFP NV.rtc 4 week obc 06/26/25 -?-?-?-?-?-?-?-?-?-?-?-?- 21w 1d 124.398 kg 123/79 absent unknown 17 135 absent light fm, no ob complaints, MFM pending, no SAB complaints reported AFP,A1c, discuss GDM diet, contineu PNV, f/u on mfm referal, rtc 4 week 07/24/25 -?-?-?-?-?-?-?-?-?-?--?-?- 25w 1d 125.418 kg 111/73 absent unknown 20 135 active No OB complaints. Denies leaking, denies bleeding, denies contractions. Patient needs a refill on prenatals. No OB complaints Ref ill prenatals. Walk 40 minutes a day. Discussed diet and weight gain. Follow-up on MFM appointment. Return in 4 weeks OB check 08/26/25 -?-?-?-?-?-?-?-?-?-?-?-?- 29w 6d 125.872 kg 105/70 absent unknown 26 135 active Patient has ultrasound with MFM in the morning. Denies leaking, bleeding, contractions. Reports movement. No OB complaints. Patient will start disability next visit as she is not working at all. Disability next visit. Keep appointment for maternal- medicine ultrasound in the morning. Third trimester labs scheduled. Return in 4 weeks OB check 09/23/25 -?-?-?-?-?-?-?-?-?-?-?-?- 33w 6d 128.99 kg 117/72 absent unknown 33 135 active Reports good movement. Denies leaking, bleeding, contractions. Increased backache. Patient is wanting to start disability. Start disability today. Patient stopped work because she was working 8 hours a day and it made her tired to stand. Complains of back pain. Start weekly NST BPP for obesity and advanced maternal age. Discussed labor precautions. Kick count twice a day. Tdap today. And patient has a follow-up M the end of September VESNA Calculator Estimated Delivery Date Method Current WG Current Estimate 11/05/25 Ultrasound #2 33w 6d Other Estimates 11/29/25 LMP (Certain) 30w 3d 11/29/25 Ultrasound #1 30w 3d 11/29/25 Manual 30w 3d final vesna, EFW 96% Notes Visit Date: 09/23/25 Last Updated by: Holley Austin CNM 3rd tri labs:wnl, 1 hr gtt: 131, A1: 4.7,RPR::NR sono 08/27/25: EFW: 97%. biggest baby: 9lb. Visit Date: 07/24/25 Last Updated by: Holley Austin CNM 07/24: AFP- Visit Date: 06/26/25 Last Updated by: Holley Austin CNM 39 yo . LMP 02/22/25. EDC 11/29/25, A+,abs-, rpr;;nr, rub NI, hbsag-,hiv-,hc-, GC/CT-, NIPT and carrier- Visit Date: 05/29/25 Last Updated by: Holley Austin CNM 05/29: A+, abs-. NIPT-, SMA/CF-, BOY Visit Date: 04/25/25 Last Updated by: Holley Austin CNM 39 yo . lmp 02/22/25. EDC 11/29/24. AMA/BMI, A=,abs-,rpr;;nr, rub NI, hbsag-,hiv-,gc/ct-. +UTI/treated Office Procedures OBC Clinic LOC & Office Proc's Nursing/Assessment Patient Status: Established Patient OB Clinic Nursing Assessment: Medication Reconciliation, Update PMH in EMR and Vital Signs OB Clinic Coordination of Care: Complex Care and Chronic Disease 1-5, Education Complex Pt/Fam, Consent,records obtained, informed consent, Lab and Imaging orders and Staff clarify orders Special Needs: Heart tones Established Patient Charge Established Patient Point Assignment: 135 Established Patient Point Charge: EP Level 4 (120-155) Injection/Vaccine Admin SQ Im Injection: Yes Immunizations diphth,pertus(acell),tetanus 2.5 Lf unit-8 mcg-5 Lf/0.5mL IM syringe Performing Provider: Holley Austin CNM Performing Location: [facility] Administered by: Idalmis Saavedra MA on 09/23/25 13:14 Dose Route Admin Location Dispensed Lot Number Expiration Date Pack age [facility] Parts Data [employer] 0.5 mL IM Left Deltoid 0.5 mL [id number] 05/02/28 [id number] [employer] VIS Given Date VIS Provided VIS Publication Date 09/23/25 Single Vaccine 24 Eligibility Eligibility Date Funding Source [facility] Assessment & Plan Diagnosis / Problem List (1) Advanced maternal age (AMA) in : Status: Acute (2) Obesity complicating in first trimester: Status: Acute (3) Encounter for supervision of high risk in third trimester, antepartum: Status: Acute Plan Discussed third trimester labs. I advised walking 40 minutes a day and 10 minutes after each meal. Discussed weight gain. Decrease sugary foods. Follow-up [facility] the end of September. Schedule weekly NST BPP and kick count twice a day. Tdap today. Return in 2 weeks OB check Additional Plan Follow Up: 2 Weeks (obc)
[2025-09-23 09:44] VITALS: BP 117/72; PULSE 67; RESP 18; TEMP 36.4; O2SAT 96; BMI 52.3
== END 2025-09-23 10:12 | disposition home or self-care (01) ==
PROVIDERS: Supervising Provider Advanced Practice Midwife; Visit Provider Advanced Practice Midwife
DX: O09.523 Supervision of elderly multigravida, third trimester (principal); O09.893 Supervision of other high risk pregnancies, third trimester; O99.213 Obesity complicating pregnancy, third trimester; O99.891 Other specified diseases and conditions complicating pregnancy; M54.9 Dorsalgia, unspecified; Z3A.33 33 weeks gestation of pregnancy; Z23 Encounter for immunization
CPT/HCPCS: 90471; 90715; 96372; 99214; G0463

== ENCOUNTER 2025-10-07 11:16 | Outpatient (AMB) | payer MEDICAID, SELFPAY ==
[2025-10-07 11:24] VITALS: BP 108/66; PULSE 80; RESP 18; TEMP 36.2; O2SAT 96; BMI 51.9
--- NOTE | 2025-10-07 11:24 | OBCLNT_ITS ---
Vital Signs 10/07/25 11:24 Height 1.57 m Height Method Stated Weight 127.97 kg Weight Measurement Method Standing Scale BMI 51.9 BP 108/66 Blood Pressure Source Automatic Cuff Blood Pressure Location Right Upper Arm Position Sitting Respiration 18 Pulse 80 Pulse Source Monitor Temp 97.1 F Temp Source Temporal Artery Scan Pulse Oximetry (%) 96 Oxygen Delivery Method Room Air Allergies/Home Meds Allergies & Medications Allergies No Known Allergies Allergy (Verified 10/07/25 11:25) Medication Reconciliation doxylamine 10 mg-pyridoxine (vit B6) 10 mg tablet,delayed release (Diclegis) 1 tab PO BID PRN nausea and vomiting 30 days #60 tabs 04/25/25 [Rx Confirmed 10/07/25] vitamin-ferrous fumarate 28 mg iron-folic acid 800 mcg tablet ( Vitamins with Minerals) 1 tab PO QDAY #60 tabs 07/24/25 [Rx Confirmed 10/07/25] clotrimazole 1 % vaginal cream (Gyne-Lotrimin 7) 1 appful vaginal QHS #45 grams 10/07/25 [Rx] fluconazole 150 mg tablet 150 mg PO QDAY 3 days #3 tabs 10/07/25 [Rx] metronidazole 500 mg tablet 500 mg PO BID 7 days #14 tabs 10/07/25 [Rx] Intake Visit Data Collection New Patient or Established: Established Patient (seen at [facility] within 3 years) Reason for Visit:: OBC /GBS Seen by Clinical Staff ONLY (RN/MA): No Optical Scientist Required: No Do You Feel Safe at Home: Yes Authorities Contacted: N/A PCP or OBGYN visit in last 3 months: Yes Date of Last PCP or OBGYN visit: 10/03/25 Hx Now: Yes Are you currently on any form of Control: No Pain Present Currently: No Pain Scale Used: Vance-Trevino/Numerical Pain scale:: 0 Smoking Status Smoking Status: Never smoker Immunizations Flu Vaccine in the Last 12 Months: No Flu Vaccine Exclusion Criteria: No Exclusion Criteria Questionnaires Covid-19 Vaccine Questionnaire Has patient been vacinated for Covid-19 Have you been vacinated for Covid-19: Yes PHQ-9 PHQ-2 Over the last 2 weeks, how often have you been bothered by any of the following problems? 1. Little interest or pleasure in doing things: not at all 2. Feeling down, depressed, or hopeless: not at all Total score: 0 PHQ-9 3. Trouble falling or staying asleep, or sleeping too much: Not at all 4. Feeling tired or having little energy: Not at all 5. Poor appetite or overeating: Not at all 6. Feeling bad about yourself - or that you are a failure or have let yourself or your family down: Not at all 7. Trouble concentrating on things, such as reading the newspaper or watching television: Not at all 8. Moving or speaking so slowly that other people could have noticed? - Or the opposite - being so fidgety or restless that you have been moving around a lot more than usual: not at all 9. Thoughts that you would be better off or of hurting yourself in some way: Not at all Total score: 0 If you checked off any problems, how difficult have these problems made it for you to do your work, take care of things at home, or get along with other people?: not difficult at all Source: Developed by Drs. Kieran Frances, Dominga Barber, Ezequiel Hinds and colleagues, with an educational troy from [employer]. 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 doing well, no 1st tri discomfort. discuss diet and weight gsin, Biggest baby was 9lb, no complication/no shoulder. OB panel, HCG,TSH/A1c today, start PNV, schedule OB sono for viability. will schedule MFM appointment and lovett carrier screens at 10 week, SAB precaution,rtc 4 week 04/25/25 -?-?-?-?-?-?-?-?-?-?-?-?- 8w 6d 121.109 kg 111/75 absent unknown 10 154 absent deneis sab complaints, increase N/V, no other complaints schedule NT/anatomy scan. NIPT and carrier screen today. start diclegesis bid for nausea, comfort measure, discuss diet and weight gain. sab precaution, rtc 4 week 05/29/25 -?-?-?-?-?-?-?-?-?-?-?-?- 13w 5d 121.79 kg 111/76 absent unknown 13 135 absent denies SAB complaints, light +FM discuss sab prec aution, hydrate, mfm appointment pending, AFP NV.rtc 4 week obc 06/26/25 -?-?-?-?-?-?-?-?-?-?-?-?- 17w 5d 124.398 kg 123/79 absent unknown 17 135 absent light fm, no ob complaints, MFM pending, no SAB complaints reported AFP,A1c, discuss GDM diet, contineu PNV, f/u on mfm referal, rtc 4 week 07/24/25 -?-?-?-?-?-?-?-?-?-?-?-?- 21w 5d 125.418 kg 111/73 absent unknown 20 135 active No OB complaints. Denies leaking, denies bleeding, denies contractions. Patient needs a refill on prenatals. No OB complaints Re fill prenatals. Walk 40 minutes a day. Discussed diet and weight gain. Follow-up on MFM appointment. Return in 4 weeks OB check 08/26/25 -?-?-?-?-?-?-?-?-?-?-?-?- 26w 3d 125.872 kg 105/70 absent unknown 26 135 active Patient has ultrasound with MFM in the morning. Denies leaking, bleeding, contractions. Reports movement. No OB complaints. Patient will start disability next visit as she is not working at all. Disability next visit. Keep appointment for maternal- medicine ultrasound in the morning. Third trimester labs scheduled. Return in 4 weeks OB check 09/23/25 -?-?-?-?-?-?-?-?-?-?-?-?- 30w 3d 128.99 kg 117/72 absent unknown 33 135 active Reports good movement. Denies leaking, bleeding, contractions. Increased backache. Patient is wanting to start disability. Start disability today. Patient stopped work because she was working 8 hours a day and it made her tired to stand. Complains of back pain. Start weekly NST BPP for obesity and advanced maternal age. Discussed labor precautions. Kick count twice a day. Tdap today. And patient has a follow-up MFM the end of 10/07/25 -?-?-?-?-?-?-?-?-?-?-?-?- 32w 3d 127.97 kg 108/66 absent cephalic 33 145 active Denies leaking or bleeding. Denies contractions. Reports good movement. Patient complains of vaginal discharge and itching and burning. Heavy white curdy discharge noted with but mucous membranes. No lesions NuSwab plus today. I gave the patient Gyne-Lotrimin x 7 to put at bedtime on the labia she can use it in the morning as well. Flagyl 500 p.o. twice daily x 7. And I also gave her Diflucan 151 p.o. daily x 3. Continue weekly NST BPP. Discussed diet and weight gain. Patient to walk 40 minutes a day and 10 minutes after each meal. Discussed kick count twice a day. On labor precautions. Return in 2 weeks OB check VESNA Calculator Estimated Delivery Date Method Current WG Current Estimate 11/29/25 Ultrasound #1 32w 3d Other Estimates 11/29/25 LMP (Certain) 32w 3d 11/05/25 Ultrasound #2 35w 6d 11/29/25 Manual 32w 3d final vesna, 11/29. EFW 96% Notes Visit Date: 09/23/25 Last Updated by: Holley Austin CNM 3rd tri labs:wnl, 1 hr gtt: 131, A1: 4.7,RPR::NR sono 08/27/25: EFW: 97%. biggest baby: 9lb. Visit Date: 07/24/25 Last Updated by: Holley Austin CNM 07/24: AFP- Visit Date: 06/26/25 Last Updated by: Holley Austin CNM 39 yo . LMP 02/22/25. EDC 11/29/25, A+,abs-, rpr;;nr, rub NI, hbsag-,hiv-,hc-, GC/CT-, NIPT and carrier- Visit Date: 05/29/25 Last Updated by: Holley Austin CNM 05/29: A+, abs-. NIPT-, SMA/CF-, BOY Visit Date: 04/25/25 Last Updated by: Holley Austin CNM 39 yo . lmp 02/22/25. EDC 11/29/24. AMA/BMI, A=,abs-,rpr;;nr, rub NI, hbsag-,hiv-,gc/ct-. +UTI/treated Office Procedures OBC Clinic LOC & Office Proc's Nursing/Assessment Patient Status: Established Patient OB Clinic Nursing Assessment: Medication Reconciliation, Update PMH in EMR and Vital Signs OB Clinic Coordination of Care: Complex Care and Chronic Disease 1-5, Education Complex Pt/Fam, Consent,records obtained, informed consent, Lab and Imaging orders, Results/Orders obtained and Staff clarify orders Special Needs: Heart tones Miscellaneous Interventions: Culture Specimen Collection Established Patient Charge Established Patient Point Assignment: 155 Established Patient Point Charge: EP Level 4 (120-155) Assessment & Plan Diagnosis / Problem List (1) Encounter for supervision of high risk in third trimester, antepartum: Status: Acute (2) Obesity complicating in first trimester: Status: Acute Qualifiers: Obesity type affecting : severe obesity due to excess calories Qualified Code(s): O99.211 - Obesity complicating , first trimester; E66.01 - Morbid (severe) obesity due to excess calories (3) Advanced maternal age (AMA) in : Status: Acute (4) Vaginitis: Status: Acute Qualifiers: Chronicity: acute Qualified Code(s): N76.0 - Acute vaginitis Plan nu swab plus, gynelotrimin x 7, flGYL 500 PO BID X7, DIFLUCAN 150 X3, COMFORT MEASURE FOR VAGINITIS, . continue week nst/bpp, fkc bid, walk 40 minutes daily and 10 minutes after each mealdiscuss GDM diet. rtc 3 week gbs Additional Plan Follow Up: 3 Weeks (obc/gbs)
== END 2025-10-07 11:47 | disposition home or self-care (01) ==
LOC: HODSOBC 11:16
PROVIDERS: Supervising Provider Advanced Practice Midwife; Visit Provider Advanced Practice Midwife
DX: O09.893 Supervision of other high risk pregnancies, third trimester (principal); O99.213 Obesity complicating pregnancy, third trimester; O23.593 Infection of other part of genital tract in pregnancy, third trimester; N76.0 Acute vaginitis; O09.523 Supervision of elderly multigravida, third trimester; Z3A.32 32 weeks gestation of pregnancy
CPT/HCPCS: 99214; G0463

== ENCOUNTER 2025-10-14 15:01 | Outpatient (AMB) | payer MEDICAID, SELFPAY ==
[2025-10-14 15:08] VITALS: BP 123/76; PULSE 90; RESP 18; TEMP 36.8; O2SAT 98; BMI 52.4
--- NOTE | 2025-10-14 15:08 | OBCLNT_ITS ---
Vital Signs 10/14/25 15:08 Height 1.57 m Height Method Stated Weight 129.387 kg Weight Measurement Method Standing Scale BMI 52.4 BP 123/76 Blood Pressure Source Automatic Cuff Blood Pressure Location Left Upper Arm Position Sitting Respiration 18 Pulse 90 Pulse Source Monitor Temp 98.2 F Temp Source Oral Pulse Oximetry (%) 98 Oxygen Delivery Method Room Air Allergies/Home Meds Allergies & Medications Allergies No Known Allergies Allergy (Verified 10/14/25 15:09) Medication Reconciliation doxylamine 10 mg-pyridoxine (vit B6) 10 mg tablet,delayed release (Diclegis) 1 tab PO BID PRN nausea and vomiting 30 days #60 tabs 04/25/25 [Rx Confirmed 10/14/25] vitamin-ferrous fumarate 28 mg iron-folic acid 800 mcg tablet ( Vitamins with Minerals) 1 tab PO QDAY #60 tabs 07/24/25 [Rx Confirmed 10/14/25] clotrimazole 1 % vaginal cream (Gyne-Lotrimin 7) 1 appful vaginal QHS #45 grams 10/07/25 [Rx Confirmed 10/14/25] Immunizations Immunizations Flu Vaccine in the Last 12 Months: Yes Date of most recent flu vaccination: 10/14/25 Flu Vaccine Exclusion Criteria: Already Received Care OB Visit Log OB Flowsheet Initial Weight: Not Recorded Date -?-?-?-?-?-?-?-?-?-?-?-?- EGA Weight BP Alb Glu CTX Pres Fundal ht FHR Mov Dilation Station Effacement Hx Notes Visit Note 03/28/25 -?-?-?-?-?-?-?-?-?-?-?-?- 4w 6d 123.434 kg 106/72 absent 39 yo for OBI, denies sab compliants. doing well, no 1st tri discomfort. discuss diet and weight gsin, Biggest baby was 9lb, no complication/no shoulder. OB panel, HCG,TSH/A1c today, start PNV, schedule OB sono for viability. will schedule MFM appointment and lovett carrier screens at 10 week, SAB precaution,rtc 4 week 04/25/25 -?-?-?-?-?-?-?-?-?-?-?-?- 8w 6d 121.109 kg 111/75 absent unknown 10 154 absent deneis sab complaints, increase N/V, no other complaints schedule NT/anatomy scan. NIPT and carrier screen today. start diclegesis bid for nausea, comfort measure, discuss diet and weight gain. sab precaution, rtc 4 week 05/29/25 -?-?-?-?-?-?-?-?-?-?-?-?- 13w 5d 121.79 kg 111/76 absent unknown 13 135 absent denies SAB complaints, light +FM discuss sab prec aution, hydrate, mfm appointment pending, AFP NV.rtc 4 week obc 06/26/25 -?-?-?-?-?-?-?-?-?-?-?-?- 17w 5d 124.398 kg 123/79 absent unknown 17 135 absent light fm, no ob complaints, MFM pending, no SAB complaints reported AFP,A1c, discuss GDM diet, contineu PNV, f/u on mfm referal, rtc 4 week 07/24/25 -?-?-?-?-?-?-?-?-?-?-?-?- 21w 5d 125.418 kg 111/73 absent unknown 20 135 active No OB complaints. Denies leaking, denies bleeding, denies contractions. Patient needs a refill on prenatals. No OB complaints Ref ill prenatals. Walk 40 minutes a day. Discussed diet and weight gain. Follow-up on MFM appointment. Return in 4 weeks OB check 08/26/25 -?-?-?-?-?-?--?-?-?-?-?-?- 26w 3d 125.872 kg 105/70 absent unknown 26 135 active Patient has ultrasound with MFM in the morning. Denies leaking, bleeding, contractions. Reports movement. No OB complaints. Patient will start disability next visit as she is not working at all. Disability next visit. Keep appointment for maternal- medicine ultrasound in the morning. Third trimester labs scheduled. Return in 4 weeks OB check 09/23/25 -?-?-?-?-?-?-?-?-?-?-?-?- 30w 3d 128.99 kg 117/72 absent unknown 33 135 active Reports good movement. Denies leaking, bleeding, contractions. Increased backache. Patient is wanting to start disability. Start disability today. Patient stopped work because she was working 8 hours a day and it made her tired to stand. Complains of back pain. Start weekly NST BPP for obesity and advanced maternal age. Discussed labor precautions. Kick count twice a day. Tdap today. And patient has a follow-up MFM the end of 10/07/25 -?-?-?-?-?-?-?-?-?-?-?-?- 32w 3d 127.97 kg 108/66 absent cephalic 33 145 active Denies leaking or bleeding. Denies contractions. Reports good movement. Patient complains of vaginal discharge and itching and burning. Heavy white curdy discharge noted with but mucous membranes. No lesions NuSwab plus today. I gave the patient Gyne-Lotrimin x 7 to put at bedtime on the labia she can use it in the morning as well. Flagyl 500 p.o. twice daily x 7. And I also gave her Diflucan 151 p.o. daily x 3. Continue weekly NST BPP. Discussed diet and weight gain. Patient to walk 40 minutes a day and 10 minutes after each meal. Discussed kick count twice a day. On labor precautions. Return in 2 weeks OB check 10/14/25 -?-?-?-?-?-?-?-?-?-?-?-?- 33w 3d 129.387 kg 123/76 absent cephalic 33 14 5 active Fetus active. Denies leaking or bleeding. Patient is trying to watch her calorie intake and weight Discussed labor precautions. Kick count twice a day. GBS next visit. Discussed diet and weight gain. Patient to increase activity. Discussed labor precautions. Kick count twice a day. GBS next visit. Discussed diet and weight gain. Patient to increase activity. Flu Discussed labor precautions. Kick count twice a day. GBS next visit. Discussed diet and weight gain. Patient to increase activity. VESNA Calculator Estimated Delivery Date Method Current WG Current Estimate 11/29/25 Ultrasound #1 33w 3d Other Estimates 11/29/25 LMP (Certain) 33w 3d 11/05/25 Ultrasound #2 36w 6d 11/29/25 Manual 33w 3d final vesna, 11/29. EFW 96% Notes Visit Date: 10/14/25 Last Updated by: Holley Austin CNM 10/10: + yeast and BV on nuswab/treated with flagyl and diflucan 10/08: iup 32w4, 92% Visit Date: 09/23/25 Last Updated by: Holley Austin CNM 3rd tri labs:wnl, 1 hr gtt: 131, A1: 4.7,RPR::NR sono 08/27/25: EFW: 97%. biggest baby: 9lb. Visit Date: 07/24/25 Last Updated by: Holley Austin CNM 07/24: AFP- Visit Date: 06/26/25 Last Updated by: Holley Austin CNM 39 yo . LMP 02/22/25. EDC 11/29/25, A+,abs-, rpr;;nr, rub NI, hbsag-,hiv-,hc-, GC/CT-, NIPT and carrier- Visit Date: 05/29/25 Last Updated by: Holley Austin CNM 05/29: A+, abs-. NIPT-, SMA/CF-, BOY Visit Date: 04/25/25 Last Updated by: Holley Austin CNM 39 yo . lmp 02/22/25. EDC 11/29/24. AMA/BMI, A=,abs-,rpr;;nr, rub NI, hbsag-,hiv-,gc/ct-. +UTI/treated Office Procedures OBC Clinic LOC & Office Proc's Nursing/Assessment Patient Status: Established Patient OB Clinic Nursing Assessment: Medication Reconciliation, Update PMH in EMR and Vital Signs OB Clinic Coordination of Care: Consent,records obtained, informed consent, Education Simp Pt/Fam, Lab and Imaging orders, Results/Orders obtained and Staff clarify orders Special Needs: Heart tones Established Patient Charge Established Patient Point Assignment: 110 Established Patient Point Charge: EP Level 3 (80-115) Immunizations flu vac ts (6mos up)-PF 45 mcg(15mcg x3)/0.5 mL IM syringe Performing Provider: Holley Austin CNM Performing Location: [facility] Administered by: Chikis Skinner MA on 10/14/25 15:47 Dose Route Admin Location Dispensed Lot Number Expiration Date Pack age NDC NDC Metal Tile Lather 0.5 mL IM Right Deltoid 0.5 mL [id number] 05/20/26 [id number] [id number] Nexstim VIS Given Date VIS Provided VIS Publication Date 10/14/25 Single Vaccine 24 Eligibility Eligibility Date Funding Source Public Non-[facility] Assessment & Plan Diagnosis / Problem List (1) Encounter for supervision of high risk in third trimester, antepartum: Status: Acute (2) Advanced maternal age (AMA) in : Status: Acute Plan Discussed diet and weight gain. labor precautions and kick count reviewed. Flu vaccine today. Return in 2 weeks OB check, continue week nST/BPP Additional Plan Follow Up: 2 Weeks (dayron)
== END 2025-10-14 15:36 | disposition home or self-care (01) ==
LOC: HODSOBC 15:01
PROVIDERS: Supervising Provider Advanced Practice Midwife; Visit Provider Advanced Practice Midwife
DX: O09.523 Supervision of elderly multigravida, third trimester (principal); Z3A.33 33 weeks gestation of pregnancy; Z23 Encounter for immunization
CPT/HCPCS: 90471; 90686; 99213; G0463; J9060

== ENCOUNTER 2025-10-31 14:55 | Outpatient (AMB) | payer MEDICAID, SELFPAY ==
[2025-10-31 15:16] VITALS: BP 107/66; PULSE 93; RESP 18; TEMP 36; O2SAT 97; BMI 52.6
--- NOTE | 2025-10-31 15:16 | OBCLNT_ITS ---
Vital Signs 10/31/25 15:16 Height 1.57 m Height Method Stated Weight 129.727 kg Weight Measurement Method Standing Scale BMI 52.6 BP 107/66 Blood Pressure Source Automatic Cuff Blood Pressure Location Left Upper Arm Position Sitting Respiration 18 Pulse 93 Pulse Source Monitor Temp 96.8 F Temp Source Oral Pulse Oximetry (%) 97 Oxygen Delivery Method Room Air Allergies/Home Meds Allergies & Medications Allergies No Known Allergies Allergy (Verified 10/31/25 15:17) Medication Reconciliation vitamin-ferrous fumarate 28 mg iron-folic acid 800 mcg tablet ( Vitamins with Minerals) 1 tab PO QDAY #60 tabs 07/24/25 [Rx Confirmed 10/31/25] cephalexin 500 mg capsule 500 mg PO BID 7 days #14 caps 10/31/25 [Rx] Immunizations Immunizations Flu Vaccine in the Last 12 Months: Yes Flu Vaccine Exclusion Criteria: Already Received Care OB Visit Log OB Flowsheet Initial Weight: Not Recorded Date -?-?-?-?--?-?-?-?-?-?-?-?- EGA Weight BP Alb Glu CTX Pres Fundal ht FHR Mov Dilation Station Effacement Hx Notes Visit Note 03/28/25 -?-?-?-?-?-?-?-?-?-?-?-?- 4w 6d 123.434 kg 106/72 absent 39 yo for OBI, denies sab compliants. doing well, no 1st tri discomfort. discuss diet and weight gsin, Biggest baby was 9lb, no complication/no shoulder. OB panel, HCG,TSH/A1c today, start PNV, schedule OB sono for viability. will schedule MFM appointment and lovett carrier screens at 10 week, SAB precaution,rtc 4 week 04/25/25 -?-?-?-?-?-?-?-?-?-?-?-?- 8w 6d 121.109 kg 111/75 absent unknown 10 154 absent deneis sab complaints, increase N/V, no other complaints schedule NT/anatomy scan. NIPT and carrier screen today. start diclegesis bid for nausea, comfort measure, discuss diet and weight gain. sab precaution, rtc 4 week 05/29/25 -?-?-?-?-?-?-?-?-?-?-?-?- 13w 5d 121.79 kg 111/76 absent unknown 13 135 absent denies SAB complaints, light +FM discuss sab prec aution, hydrate, mfm appointment pending, AFP NV.rtc 4 week obc 06/26/25 -?-?-?-?-?-?-?-?-?-?-?-?- 17w 5d 124.398 kg 123/79 absent unknown 17 135 absent light fm, no ob complaints, MFM pending, no SAB complaints reported AFP,A1c, discuss GDM diet, contineu PNV, f/u on mfm referal, rtc 4 week 07/24/25 -?-?-?-?-?-?-?-?-?-?-?-?- 21w 5d 125.418 kg 111/73 absent unknown 20 135 active No OB complaints. Denies leaking, denies bleeding, denies contractions. Patient needs a refill on prenatals. No OB complaints Re fill prenatals. Walk 40 minutes a day. Discussed diet and weight gain. Follow-up on MFM appointment. Return in 4 weeks OB check 08/26/25 -?-?-?-?-?-?-?-?-?-?-?-?- 26w 3d 125.872 kg 105/70 absent unknown 26 135 active Patient has ultrasound with MFM in the morning. Denies leaking, bleeding, contractions. Reports movement. No OB complaints. Patient will start disability next visit as she is not working at all. Disability next visit. Keep appointment for maternal- medicine ultrasound in the morning. Third trimester labs scheduled. Return in 4 weeks OB check 09/23/25 -?-?-?-?-?-?-?-?-?-?-?-?- 30w 3d 128.99 kg 117/72 absent unknown 33 135 active Reports good movement. Denies leaking, bleeding, contractions. Increased backache. Patient is wanting to start disability. Start disability today. Patient stopped work because she was working 8 hours a day and it made her tired to stand. Complains of back pain. Start weekly NST BPP for obesity and advanced maternal age. Discussed labor precautions. Kick count twice a day. Tdap today. And patient has a follow-up MFM the end of 10/07/25 -?-?-?-?-?-?-?-?-?-?-?-?- 32w 3d 127.97 kg 108/66 absent cephalic 33 145 active Denies leaking or bleeding. Denies contractions. Reports good movement. Patient complains of vaginal discharge and itching and burning. Heavy white curdy discharge noted with but mucous membranes. No lesions NuSwab plus today. I gave the patient Gyne-Lotrimin x 7 to put at bedtime on the labia she can use it in the morning as well. Flagyl 500 p.o. twice daily x 7. And I also gave her Diflucan 151 p.o. daily x 3. Continue weekly NST BPP. Discussed diet and weight gain. Patient to walk 40 minutes a day and 10 minutes after each meal. Discussed kick count twice a day. On labor precautions. Return in 2 weeks OB check 10/14/25 -?-?-?-?-?-?-?-?-?-?-?-?- 33w 3d 129.387 kg 123/76 absent cephalic 33 14 5 active Fetus active. Denies leaking or bleeding. Patient is trying to watch her calorie intake and weight Discussed labor precautions. Kick count twice a day. GBS next visit. Discussed diet and weight gain. Patient to increase activity. Discussed labor precautions. Kick count twice a day. GBS next visit. Discussed diet and weight gain. Patient to increase activity. Flu Discussed labor precautions. Kick count twice a day. GBS next visit. Discussed diet and weight gain. Patient to increase activity. 10/31/25 -?-?-?-?-?-?-?-?-?-?-?-?- 35w 6d 129.727 kg 107/66 absent cephalic 36 14 5 active Small round abscess 1 cm. No redness. Firm to touch. Under right breast about midway. Reports good movement. Denies leaking or bleeding. Occasional contraction. GBS today. Warm compresses for the abscess twice a day and then Keflex 500 p.o. twice daily x 7 days. We did her GBS. Patient will continue to have weekly NST BPP and the plan is to schedule patient for induction at 39 weeks for delivery because of elevated BMI and history of macrosomia GBS today. Warm compresses for the abscess twice a day and then Keflex 500 p.o. twice daily x 7 days. We did her GBS. Patient will continue to have weekly NST BPP and the plan is to schedule patient for induction at 39 weeks for delivery because of elevated BMI and history of macrosomia, IOL 11/29/25. GBS today, fkc bid, contineu week NST/BPP VESNA Calculator Estimated Delivery Date Method Current WG Current Estimate 11/29/25 Ultrasound #1 35w 6d Other Estimates 11/29/25 LMP (Certain) 35w 6d 11/05/25 Ultrasound #2 39w 2d 11/29/25 Manual 35w 6d final vesna, 11/29. EFW 96% Notes Visit Date: 10/31/25 Last Updated by: Holley Austin CNM schedule IOL 11/24/25 for AMA/macrosomia, obesity Visit Date: 10/14/25 Last Updated by: Holley Austin CNM 10/10: + yeast and BV on nuswab/treated with flagyl and diflucan 10/08: iup 32w4, 92% Visit Date: 09/23/25 Last Updated by: Holley Austin CNM 3rd tri labs:wnl, 1 hr gtt: 131, A1: 4.7,RPR::NR sono 08/27/25: EFW: 97%. biggest baby: 9lb. Visit Date: 07/24/25 Last Updated by: Holley Austin CNM 07/24: AFP- Visit Date: 06/26/25 Last Updated by: Holley Austin CNM 39 yo . LMP 02/22/25. EDC 11/29/25, A+,abs-, rpr;;nr, rub NI, hbsag-,hiv-,hc-, GC/CT-, NIPT and carrier- Visit Date: 05/29/25 Last Updated by: Holley Austin CNM 05/29: A+, abs-. NIPT-, SMA/CF-, BOY Visit Date: 04/25/25 Last Updated by: Holley Austin CNM 39 yo . lmp 02/22/25. EDC 11/29/24. AMA/BMI, A=,abs-,rpr;;nr, rub NI, hbsag-,hiv-,gc/ct-. +UTI/treated Office Procedures OBC Clinic LOC & Office Proc's Nursing/Assessment Patient Status: Established Patient OB Clinic Nursing Assessment: Medication Reconciliation, Update PMH in EMR and Vital Signs OB Clinic Coordination of Care: AMA, Complex Care and Chronic Disease 1-5, Consent,records obtained, informed consent, Education Simp Pt/Fam, 1 Ins Authorization, Lab and Imaging orders, Results/Orders obtained and Staff clarify orders Special Needs: Heart tones Miscellaneous Interventions: Culture Specimen Collection Established Patient Charge Established Patient Point Assignment: 185 Established Patient Point Charge: EP Level 5 (160-above) Assessment & Plan Diagnosis / Problem List (1) Encounter for supervision of high risk in third trimester, antepartum: Status: Acute (2) Advanced maternal age (AMA) in : Status: Acute (3) Obesity complicating in first trimester: Status: Acute Qualifiers: Obesity type affecting : severe obesity due to excess calories Qualified Code(s): O99.211 - Obesity complicating , first trimester; E66.01 - Morbid (severe) obesity due to excess calories Plan Schedule induction of labor for November 24, 2025. Continue weekly NST BPP. I discussed diet and weight gain again with patient. And encouraged patient to walk is much as she felt she could walk. Discussed labor precautions and kick count twice a day. Warm compresses for small abscess she has under her right breast and Keflex 500 p.o. twice daily x 7. GBS today Additional Plan Follow Up: 1 Week (obc)
== END 2025-10-31 15:44 | disposition home or self-care (01) ==
LOC: HODSOBC 14:55
PROVIDERS: Supervising Provider Advanced Practice Midwife; Visit Provider Advanced Practice Midwife
DX: O09.523 Supervision of elderly multigravida, third trimester (principal); O09.893 Supervision of other high risk pregnancies, third trimester; O99.213 Obesity complicating pregnancy, third trimester; O91.113 Abscess of breast associated with pregnancy, third trimester; O36.63X0 Maternal care for excessive fetal growth, third trimester, not applicable or unspecified; Z3A.35 35 weeks gestation of pregnancy; Z36.85 Encounter for antenatal screening for Streptococcus B
CPT/HCPCS: 99215; G0463

== ENCOUNTER 2025-11-15 11:13 | Outpatient (AMB) | payer MEDICAID, SELFPAY ==
[2025-11-15 11:45] VITALS: BP 117/80; PULSE 94; RESP 18; TEMP 36.2; O2SAT 96; BMI 52.4
--- NOTE | 2025-11-15 11:45 | OBCLNT_ITS ---
Vital Signs 11/15/25 11:45 Height 1.57 m Height Method Stated Weight 129.387 kg Weight Measurement Method Standing Scale BMI 52.4 BP 117/80 Blood Pressure Source Automatic Cuff Blood Pressure Location Right Upper Arm Position Sitting Respiration 18 Pulse 94 Pulse Source Monitor Temp 97.2 F Temp Source Temporal Artery Scan Pulse Oximetry (%) 96 Oxygen Delivery Method Room Air Allergies/Home Meds Allergies & Medications Allergies No Known Allergies Allergy (Verified 11/15/25 11:47) Medication Reconciliation vitamin-ferrous fumarate 28 mg iron-folic acid 800 mcg tablet ( Vitamins with Minerals) 1 tab PO QDAY #60 tabs 07/24/25 [Rx Confirmed 11/15/25] Immunizations Immunizations Flu Vaccine in the Last 12 Months: No Flu Vaccine Exclusion Criteria: No Exclusion Criteria Care OB Visit Log OB Flowsheet Initial Weight: Not Recorded Date -?-?-?-?-?-?-?-?-?-?-?-?- EGA Weight BP Alb Glu CTX Pres Fundal ht FHR Mov Dilation Station Effacement Hx Notes Visit Note 03/28/25 -?-?-?-?-?-?-?-?-?-?-?-?- 4w 6d 123.434 kg 106/72 absent 39 yo for OBI, denies sab compliants. doing well, no 1st tri discomfort. discuss diet and weight gsin, Biggest baby was 9lb, no complication/no shoulder. OB panel, HCG,TSH/A1c today, start PNV, schedule OB sono for viability. will schedule MFM appointment and lovett carrier screens at 10 week, SAB precaution,rtc 4 week 04/25/25 -?-?-?-?-?-?-?-?-?-?-?-?- 8w 6d 121.109 kg 111/75 absent unknown 10 154 absent deneis sab complaints, increase N/V, no other complaints schedule NT/anatomy scan. NIPT and carrier screen today. start diclegesis bid for nausea, comfort measure, discuss diet and weight gain. sab precaution, rtc 4 week 05/29/25 -?-?-?-?-?-?-?-?-?-?-?-?- 13w 5d 121.79 kg 111/76 absent unknown 13 135 absent denies SAB complaints, light +FM discuss sab prec aution, hydrate, mfm appointment pending, AFP NV.rtc 4 week obc 06/26/25 -?-?-?-?-?-?-?-?-?-?-?-?- 17w 5d 124.398 kg 123/79 absent unknown 17 135 absent light fm, no ob complaints, MFM pending, no SAB complaints reported AFP,A1c, discuss GDM diet, contineu PNV, f/u on mfm referal, rtc 4 week 07/24/25 -?-?-?-?-?-?-?-?-?-?-?-?- 21w 5d 125.418 kg 111/73 absent unknown 20 135 active No OB complaints. Denies leaking, denies bleeding, denies contractions. Patient needs a refill on prenatals. No OB complaints Ref ill prenatals. Walk 40 minutes a day. Discussed diet and weight gain. Follow-up on MFM appointment. Return in 4 weeks OB check 08/26/25 -?-?-?-?-?-?-?-?-?-?-?-?- 26w 3d 125.872 kg 105/70 absent unknown 26 135 active Patient has ultrasound with MFM in the morning. Denies leaking, bleeding, contractions. Reports movement. No OB complaints. Patient will start disability next visit as she is not working at all. Disability next visit. Keep appointment for maternal- medicine ultrasound in the morning. Third trimester labs scheduled. Return in 4 weeks OB check 09/23/25 -?-?-?-?-?-?-?-?-?-?-?-?- 30w 3d 128.99 kg 117/72 absent unknown 33 135 active Reports good movement. Denies leaking, bleeding, contractions. Increased backache. Patient is wanting to start disability. Start disability today. Patient stopped work because she was working 8 hours a day and it made her tired to stand. Complains of back pain. Start weekly NST BPP for obesity and advanced maternal age. Discussed labor precautions. Kick count twice a day. Tdap today. And patient has a follow-up MFM the end of 10/07/25 -?-?-?-?-?-?-?-?--?-?-?-?- 32w 3d 127.97 kg 108/66 absent cephalic 33 145 active Denies leaking or bleeding. Denies contractions. Reports good movement. Patient complains of vaginal discharge and itching and burning. Heavy white curdy discharge noted with but mucous membranes. No lesions NuSwab plus today. I gave the patient Gyne-Lotrimin x 7 to put at bedtime on the labia she can use it in the morning as well. Flagyl 500 p.o. twice daily x 7. And I also gave her Diflucan 151 p.o. daily x 3. Continue weekly NST BPP. Discussed diet and weight gain. Patient to walk 40 minutes a day and 10 minutes after each meal. Discussed kick count twice a day. On labor precautions. Return in 2 weeks OB check 10/14/25 -?-?-?-?-?-?-?-?-?--?-?-?- 33w 3d 129.387 kg 123/76 absent cephalic 33 14 5 active Fetus active. Denies leaking or bleeding. Patient is trying to watch her calorie intake and weight Discussed labor precautions. Kick count twice a day. GBS next visit. Discussed diet and weight gain. Patient to increase activity. Discussed labor precautions. Kick count twice a day. GBS next visit. Discussed diet and weight gain. Patient to increase activity. Flu Discussed labor precautions. Kick count twice a day. GBS next visit. Discussed diet and weight gain. Patient to increase activity. 10/31/25 -?-?-?-?-?-?-?-?-?-?-?-?- 35w 6d 129.727 kg 107/66 absent cephalic 36 14 5 active Small round abscess 1 cm. No redness. Firm to touch. Under right breast about midway. Reports good movement. Denies leaking or bleeding. Occasional contraction. GBS today. Warm compresses for the abscess twice a day and then Keflex 500 p.o. twice daily x 7 days. We did her GBS. Patient will continue to have weekly NST BPP and the plan is to schedule patient for induction at 39 weeks for delivery because of elevated BMI and history of macrosomia GBS today. Warm compresses for the abscess twice a day and then Keflex 500 p.o. twice daily x 7 days. We did her GBS. Patient will continue to have weekly NST BPP and the plan is to schedule patient for induction at 39 weeks for delivery because of elevated BMI and history of macrosomia, IOL 11/29/25. GBS today, fkc bid, contineu week NST/BPP 11/15/25 -?-?-?-?-?-?-?-?-?-?-?-?- 38w 0d 129.387 kg 117/80 occasional cephalic 38 145 active Abscess on breast improved. Reports good movement. Denies leaking, bleeding. Occasional contraction. GBS is positive Discussed GBS results. Patient is scheduled for induction November 24. We reviewed induction. Discussed labor precautions and kick count twice a day. Discussed diet and weight. Return in a week for OB check. VESNA Calculator Estimated Delivery Date Method Current WG Current Estimate 11/29/25 Ultrasound #1 38w 0d Other Estimates 11/29/25 LMP (Certain) 38w 0d 11/05/25 Ultrasound #2 41w 3d 11/29/25 Manual 38w 0d final vesna, 11/29. EFW 96% Notes Visit Date: 11/15/25 Last Updated by: Holley Austin CNM GBS+ Visit Date: 10/31/25 Last Updated by: Holley Austin CNM schedule IOL 11/24/25 for AMA/macrosomia, obesity Visit Date: 10/14/25 Last Updated by: Holley Austin CNM 10/10: + yeast and BV on nuswab/treated with flagyl and diflucan 10/08: iup 32w4, 92% Visit Date: 09/23/25 Last Updated by: Holley Austin CNM 3rd tri labs:wnl, 1 hr gtt: 131, A1: 4.7,RPR::NR sono 08/27/25: EFW: 97%. biggest baby: 9lb. Visit Date: 07/24/25 Last Updated by: Holley Austin CNM 07/24: AFP- Visit Date: 06/26/25 Last Updated by: Holley Austin CNM 39 yo . LMP 02/22/25. EDC 11/29/25, A+,abs-, rpr;;nr, rub NI, hbsag-,hiv-,hc-, GC/CT-, NIPT and carrier- Visit Date: 05/29/25 Last Updated by: Holley Austin CNM 05/29: A+, abs-. NIPT-, SMA/CF-, BOY Visit Date: 04/25/25 Last Updated by: Holley Austin CNM 39 yo . lmp 02/22/25. EDC 11/29/24. AMA/BMI, A=,abs-,rpr;;nr, rub NI, hbsag-,hiv-,gc/ct-. +UTI/treated Office Procedures OBC Clinic LOC & Office Proc's Nursing/Assessment Patient Status: Established Patient OB Clinic Nursing Assessment: Medication Reconciliation, Update PMH in EMR and Vital Signs OB Clinic Coordination of Care: Complex Care and Chronic Disease 1-5, Education Complex Pt/Fam, Consent,records obtained, informed consent, Lab and Imaging orders, Results/Orders obtained and Staff clarify orders Special Needs: Heart tones Established Patient Charge Established Patient Point Assignment: 140 Established Patient Point Charge: EP Level 4 (120-155) Assessment & Plan Diagnosis / Problem List (1) Encounter for supervision of high risk in third trimester, antepartum: Status: Acute (2) Advanced maternal age (AMA) in : Status: Acute (3) Obesity complicating in first trimester: Status: Acute Qualifiers: Obesity type affecting : severe obesity due to excess calories Qualified Code(s): O99.211 - Obesity complicating , first trimester; E66.01 - Morbid (severe) obesity due to excess calories Plan Schedule induction November 24, 2025. Discussed labor precautions. Kick count twice a day. Reviewed ER precautions. Discussed diet and weight. Return in a week OB check Additional Plan Follow Up: 1 Week (obc)
== END 2025-11-15 12:53 | disposition home or self-care (01) ==
LOC: HODSOBC 11:13
PROVIDERS: Supervising Provider Advanced Practice Midwife; Visit Provider Advanced Practice Midwife
DX: O09.523 Supervision of elderly multigravida, third trimester (principal); O99.213 Obesity complicating pregnancy, third trimester; O09.893 Supervision of other high risk pregnancies, third trimester; O99.820 Streptococcus B carrier state complicating pregnancy; Z3A.38 38 weeks gestation of pregnancy
CPT/HCPCS: 99214; G0463

== ENCOUNTER 2025-11-20 12:55 | Outpatient (AMB) | payer MEDICAID, SELFPAY ==
[2025-11-20 13:02] VITALS: BP 122/84; PULSE 77; RESP 16; TEMP 36.4; O2SAT 96; BMI 53.7
--- NOTE | 2025-11-20 13:02 | OBCLNT_ITS ---
Vital Signs 11/20/25 13:02 Height 1.57 m Height Method Stated Weight 132.449 kg Weight Measurement Method Standing Scale BMI 53.7 BP 122/84 Blood Pressure Source Automatic Cuff Blood Pressure Location Left Upper Arm Position Sitting Respiration 16 Pulse 77 Pulse Source Monitor Temp 97.6 F Temp Source Oral Pulse Oximetry (%) 96 Oxygen Delivery Method Room Air Allergies/Home Meds Allergies & Medications Allergies No Known Allergies Allergy (Verified 11/20/25 13:03) Medication Reconciliation vitamin-ferrous fumarate 28 mg iron-folic acid 800 mcg tablet ( Vitamins with Minerals) 1 tab PO QDAY #60 tabs 07/24/25 [Rx Confirmed 11/20/25] fluconazole 150 mg tablet 150 mg PO QDAY 3 days #3 tabs 11/20/25 [Rx] Immunizations Immunizations Flu Vaccine in the Last 12 Months: Yes Date of most recent flu vaccination: 10/14/25 Flu Vaccine Exclusion Criteria: Already Received Care OB Visit Log OB Flowsheet Initial Weight: Not Recorded Date -?-?-?-?-?-?-?-?-?-?-?-?- EGA Weight BP Alb Glu CTX Pres Fundal ht FHR Mov Dilation Station Effacement Hx Notes Visit Note 03/28/25 -?-?-?-?-?--?-?-?-?-?-?-?- 4w 6d 123.434 kg 106/72 absent 39 yo for OBI, denies sab compliants. doing well, no 1st tri discomfort. discuss diet and weight gsin, Biggest baby was 9lb, no complication/no shoulder. OB panel, HCG,TSH/A1c today, start PNV, schedule OB sono for viability. will schedule MFM appointment and lovett carrier screens at 10 week, SAB precaution,rtc 4 week 04/25/25 -?-?-?-?-?-?-?-?-?-?-?-?- 8w 6d 121.109 kg 111/75 absent unknown 10 154 absent deneis sab complaints, increase N/V, no other complaints schedule NT/anatomy scan. NIPT and carrier screen today. start diclegesis bid for nausea, comfort measure, discuss diet and weight gain. sab precaution, rtc 4 week 05/29/25 -?-?-?-?-?-?-?-?-?-?-?-?- 13w 5d 121.79 kg 111/76 absent unknown 13 135 absent denies SAB complaints, light +FM discuss sab prec aution, hydrate, mfm appointment pending, AFP NV.rtc 4 week obc 06/26/25 -?-?-?-?-?-?-?-?-?-?-?-?- 17w 5d 124.398 kg 123/79 absent unknown 17 135 absent light fm, no ob complaints, MFM pending, no SAB complaints reported AFP,A1c, discuss GDM diet, contineu PNV, f/u on mfm referal, rtc 4 week 07/24/25 -?-?-?-?-?-?-?-?-?-?-?-?- 21w 5d 125.418 kg 111/73 absent unknown 20 135 active No OB complaints. Denies leaking, denies bleeding, denies contractions. Patient needs a refill on prenatals. No OB complaints Re fill prenatals. Walk 40 minutes a day. Discussed diet and weight gain. Follow-up on MFM appointment. Return in 4 weeks OB check 08/26/25 -?-?-?-?-?-?-?-?-?-?-?-?- 26w 3d 125.872 kg 105/70 absent unknown 26 135 active Patient has ultrasound with MFM in the morning. Denies leaking, bleeding, contractions. Reports movement. No OB complaints. Patient will start disability next visit as she is not working at all. Disability next visit. Keep appointment for maternal- medicine ultrasound in the morning. Third trimester labs scheduled. Return in 4 weeks OB check 09/23/25 -?-?-?-?-?-?-?-?-?-?-?-?- 30w 3d 128.99 kg 117/72 absent unknown 33 135 active Reports good movement. Denies leaking, bleeding, contractions. Increased backache. Patient is wanting to start disability. Start disability today. Patient stopped work because she was working 8 hours a day and it made her tired to stand. Complains of back pain. Start weekly NST BPP for obesity and advanced maternal age. Discussed labor precautions. Kick count twice a day. Tdap today. And patient has a follow-up MFM the end of 10/07/25 -?-?-?-?-?-?-?-?-?-?-?-?- 32w 3d 127.97 kg 108/66 absent cephalic 33 145 active Denies leaking or bleeding. Denies contractions. Reports good movement. Patient complains of vaginal discharge and itching and burning. Heavy white curdy discharge noted with but mucous membranes. No lesions NuSwab plus today. I gave the patient Gyne-Lotrimin x 7 to put at bedtime on the labia she can use it in the morning as well. Flagyl 500 p.o. twice daily x 7. And I also gave her Diflucan 151 p.o. daily x 3. Continue weekly NST BPP. Discussed diet and weight gain. Patient to walk 40 minutes a day and 10 minutes after each meal. Discussed kick count twice a day. On labor precautions. Return in 2 weeks OB check 10/14/25 -?-?-?-?-?-?-?-?-?-?-?-?- 33w 3d 129.387 kg 123/76 absent cephalic 33 14 5 active Fetus active. Denies leaking or bleeding. Patient is trying to watch her calorie intake and weight Discussed labor precautions. Kick count twice a day. GBS next visit. Discussed diet and weight gain. Patient to increase activity. Discussed labor precautions. Kick count twice a day. GBS next visit. Discussed diet and weight gain. Patient to increase activity. Flu Discussed labor precautions. Kick count twice a day. GBS next visit. Discussed diet and weight gain. Patient to increase activity. 10/31/25 -?-?-?-?-?-?-?-?-?-?-?-?- 35w 6d 129.727 kg 107/66 absent cephalic 36 14 5 active Small round abscess 1 cm. No redness. Firm to touch. Under right breast about midway. Reports good movement. Denies leaking or bleeding. Occasional contraction. GBS today. Warm compresses for the abscess twice a day and then Keflex 500 p.o. twice daily x 7 days. We did her GBS. Patient will continue to have weekly NST BPP and the plan is to schedule patient for induction at 39 weeks for delivery because of elevated BMI and history of macrosomia GBS today. Warm compresses for the abscess twice a day and then Keflex 500 p.o. twice daily x 7 days. We did her GBS. Patient will continue to have weekly NST BPP and the plan is to schedule patient for induction at 39 weeks for d elivery because of elevated BMI and history of macrosomia, IOL 11/29/25. GBS today, fkc bid, contineu week NST/BPP 11/15/25 -?-?-?-?-?-?-?-?-?-?-?-?- 38w 0d 129.387 kg 117/80 occasional cephalic 38 145 active Abscess on breast improved. Reports good movement. Denies leaking, bleeding. Occasional contraction. GBS is positive Discussed GBS results. Patient is scheduled for induction November 24. We reviewed induction. Discussed labor precautions and kick count twice a day. Discussed diet and weight. Return in a week for OB check. 11/20/25 -?-?-?-?-?-?-?-?-?-?-?-?- 38w 5d 132.449 kg 122/84 occasional cephalic 38 145 active 0 -4 25 No OB complaints. Reports good movement. Denies leaking, bleeding, contractions Patient schedule d for induction November 24. Diflucan 150 p.o. daily x 3 for yeast infection. Discussed kick count twice a day. Labor precautions. ER precautions. Continue with NST if undelivered and return in a week if undelivered for OB check VESNA Calculator Estimated Delivery Date Method Current WG Current Estimate 11/29/25 Ultrasound #1 38w 5d Other Estimates 11/29/25 LMP (Certain) 38w 5d 11/05/25 Ultrasound #2 42w 1d 11/29/25 Manual 38w 5d final vesna, 11/29. EFW 96% Notes Visit Date: 11/15/25 Last Updated by: Holley Austin CNM GBS+ Visit Date: 10/31/25 Last Updated by: Holley Austin CNM schedule IOL 11/24/25 for AMA/macrosomia, obesity Visit Date: 10/14/25 Last Updated by: Holley Austin CNM 10/10: + yeast and BV on nuswab/treated with flagyl and diflucan 10/08: iup 32w4, 92% Visit Date: 09/23/25 Last Updated by: Holley Austin CNM 3rd tri labs:wnl, 1 hr gtt: 131, A1: 4.7,RPR::NR sono 08/27/25: EFW: 97%. biggest baby: 9lb. Visit Date: 07/24/25 Last Updated by: Holley Austin CNM 07/24: AFP- Visit Date: 06/26/25 Last Updated by: Holley Austin CNM 39 yo . LMP 02/22/25. EDC 11/29/25, A+,abs-, rpr;;nr, rub NI, hbsag-,hiv-,hc-, GC/CT-, NIPT and carrier- Visit Date: 05/29/25 Last Updated by: Holley Austin CNM 05/29: A+, abs-. NIPT-, SMA/CF-, BOY Visit Date: 04/25/25 Last Updated by: Holley Austin CNM 39 yo . lmp 02/22/25. EDC 11/29/24. AMA/BMI, A=,abs-,rpr;;nr, rub NI, hbsag-,hiv-,gc/ct-. +UTI/treated Office Procedures OBC Clinic LOC & Office Proc's Nursing/Assessment Patient Status: Established Patient OB Clinic Nursing Assessment: Medication Reconciliation, Update PMH in EMR and Vital Signs OB Clinic Coordination of Care: AMA, Complex Care and Chronic Disease 1-5, Consent,records obtained, informed consent, Education Simp Pt/Fam, 1 Ins Authorization, Lab and Imaging orders, Results/Orders obtained and Staff clarify orders Special Needs: Heart tones Established Patient Charge Established Patient Point Assignment: 170 Established Patient Point Charge: EP Level 5 (160-above) Assessment & Plan Diagnosis / Problem List (1) Vaginitis: Status: Acute Qualifiers: Chronicity: acute Qualified Code(s): N76.0 - Acute vaginitis (2) Encounter for supervision of high risk in third trimester, antepartum: Status: Acute (3) Obesity complicating in first trimester: Status: Acute Qualifiers: Obesity type affecting : severe obesity due to excess calories Qualified Code(s): O99.211 - Obesity complicating , first trimester; E66.01 - Morbid (severe) obesity due to excess calories (4) Advanced maternal age (AMA) in : Status: Acute Plan Diflucan 150 mg p.o. daily x 3. Comfort measures for vaginitis. Discussed labor precautions. Patient scheduled for induction November 24 she was given instructions. Kick count twice a day. Continue with NST BPP until delivery. Discussed danger signs symptoms ER precautions return in a week if undelivered Additional Plan Follow Up: 1 Week (obc)
== END 2025-11-20 13:48 | disposition home or self-care (01) ==
LOC: HODSOBC 12:55
PROVIDERS: Supervising Provider Advanced Practice Midwife; Visit Provider Advanced Practice Midwife
DX: O09.893 Supervision of other high risk pregnancies, third trimester (principal); O99.213 Obesity complicating pregnancy, third trimester; O98.813 Other maternal infectious and parasitic diseases complicating pregnancy, third trimester; B37.31 Acute candidiasis of vulva and vagina; O09.523 Supervision of elderly multigravida, third trimester; Z3A.38 38 weeks gestation of pregnancy
CPT/HCPCS: 99215; G0463